=== PATIENT | female | born 1980 | race Caucasian/White ===

== ENCOUNTER 2017-01-19 16:57 | Inpatient (IN) | payer SELFPAY ==
[~2017-01-19] VITALS: Ht 154.9 cm; Wt 83.6 kg
[~2017-01-19 16:57] MED LIST: CATAPRES0.1 MG PO; CYCLOBENZAPRINE10 MG PO; HUMALOG 30100 UNITS/ SQ; HYDROCODONE-APA1 TAB PO; IBUPROFEN600 MG PO; KLONOPIN0.5 MG PO; LEVEMIR100 U/M1 SC; METHYLERGONOVI0.2 MG PO; NOVOLOG MIX 70/10 ML SC; PERCOCET 5-3251 TAB PO; PHENERGAN25 M1 PO; PRENATAL COMPLE1 TAB PO; PRILOSEC20 MG PO; TYLENOL PM1 TAB PO; VIBRAMYCIN 100100 MG PO; ZANTAC150 MG PO; ZOFRAN4 MG PO
--- NOTE | 2017-01-19 17:15 | NUR ---
RECIEVED TO ROOM 2215 DIRECT ADMIT.
[2017-01-19] MEDS ORDERED: KLONOPIN0.5 MG PO (17:20)
[2017-01-19] MEDS ORDERED: OMEPRAZOLE20 M1 PO (17:20)
[2017-01-19] MEDS ORDERED: CATAPRES0.1 MG PO (17:20)
[2017-01-19 17:28] VITALS: BP 152/72; Ht 154.9 cm; Wt 83.6 kg
--- NOTE | 2017-01-19 17:50 | NUR ---
IV SITED TO L HAND WITH 22 GUAGE X 1 ATTEMPT. DILAUDID GIVEN SLOW IVP FOR COMPLAINT OF ABDOMINAL PAIN. VISITING WITH COMPANY.
[2017-01-19 19:06] LABS: BASOPHILS 0.5 % (0-2); EOSINOPHILS 1.1 % (0-7); HEMATOCRIT 43.9 % (36.0-48.0); HEMOGLOBIN 15.5 g/dL (12-16); IMMATURE GRANULOCYTES 0.5 % (0-5); LYMPHOCYTES 33.2 % (15-50); MCH 32.9 pg (26.0-34.0); MCHC 35.3 g/dL (31.0-37.0); MCV 93.2 fL (80.0-100.0); MEAN PLATELET VOLUME 8.8 fL (7.4-10.4); MONOCYTES 7.6 % (2-11); NEUTROPHILS 57.1 % (40-80); PLATELET COUNT 377 10x3/uL (130-400); RBC 4.71 10x6/uL (4.00-5.40); RDW 11.8 % (11.5-14.5); WBC 9.8 10x3/uL (4.8-10.8)
[2017-01-19 19:31] LABS: HEMOGLOBIN A1C 10.4 % (4.8-6.0)
[2017-01-19 19:41] LABS: CALC OSMOLALITY 279 mosm/kg (275-300); CALCIUM 8.5 mg/dL (8.5-10.1); CARBON DIOXIDE 22.7 mmol/L (21.0-32.0); CHLORIDE - SERUM 101 mmol/L (98-107); CREATININE - SERUM 0.6 mg/dL (0.6-1.3); GLUCOSE 225 mg/dL (74-106); SODIUM 137 mmol/L (136-145); UREA NITROGEN 9 mg/dL (7-18); eGFR NON AFRICAN AMERICAN > 90 mL/min (90-120)
[2017-01-19 20:00] VITALS: BP 129/55
[2017-01-20] VITALS: BP 103/50
[2017-01-20 04:00] VITALS: BP 144/68
--- NOTE | 2017-01-20 05:50 | NUR ---
NOTIFIED BY BELKYS HAWKINS THAT HE FOUND THE PATIENT IN THE FLOOR. THE PATIENT STATED THAT WHEN SHE TRIED TO SIT ON THE BED, THE BED MOVED AND SHE FELL TO THE FLOOR. THE PATIENT HAS A SMALL SCRAPE ON HER RIGHT KNEE. THE PATIENT ALSO HAS A COMPLAINT OF HER RIGHT FIFTH FINGER BEING SORE. PATIENT REFUSED TO CALL HER FAMILY.
[2017-01-20 08:09] VITALS: BP 100/52
--- NOTE | 2017-01-20 08:25 | NUR ---
AWAKE AND ALERT. ORIENTED X3. C/O ABDOMINAL PAIN THIS AM. LUNGS ARE CLEAR BILATERALLY, NO COUGH NOTED. SKIN IS INTACT WITHOUT REDNESS EXCEPT SMALL OPEN AREA RIGHT UNDER THE UMBILICUS WHCIH HAS A DRY INTACT DRESSING IN PLACE. IV TO LEFT HAND IS PATENT WITHOUT REDNESS AT INSERTION SITE. URINE COLLECTED FOR TEST. DENIES NEEDS.
[2017-01-20 08:50] LABS: HCG URINE NEGATIVE (NEGATIVE)
--- NOTE | 2017-01-20 10:30 | NUR ---
RESTING QUIETLY IN ROOM. DENIES NEEDS.
[2017-01-20 11:14] LABS: BASOPHILS 0.5 % (0-2); EOSINOPHILS 0.9 % (0-7); HEMATOCRIT 43.5 % (36.0-48.0); HEMOGLOBIN 15.1 g/dL (12-16); IMMATURE GRANULOCYTES 0.5 % (0-5); LYMPHOCYTES 17.6 % (15-50); MCH 32.8 pg (26.0-34.0); MCHC 34.7 g/dL (31.0-37.0); MCV 94.6 fL (80.0-100.0); MEAN PLATELET VOLUME 8.9 fL (7.4-10.4); MONOCYTES 5.8 % (2-11); NEUTROPHILS 74.7 % (40-80); PLATELET COUNT 355 10x3/uL (130-400); RDW 11.9 % (11.5-14.5)
[2017-01-20 11:54] LABS: ALBUMIN 3.2 g/dL (3.4-5.0); ALKALINE PHOSPHATASE 111 U/L (46-116); ALT (SGPT) 29 U/L (10-68); CALC OSMOLALITY 277 mosm/kg (275-300); CALCIUM 8.6 mg/dL (8.5-10.1); CARBON DIOXIDE 25.1 mmol/L (21.0-32.0); CHLORIDE - SERUM 101 mmol/L (98-107); CREATININE - SERUM 0.6 mg/dL (0.6-1.3); GLUCOSE 269 mg/dL (74-106); POTASSIUM - SERUM 4.7 mmol/L (3.5-5.1); PROTEIN - SERUM 6.3 g/dL (6.4-8.2); SODIUM 134 mmol/L (136-145); UREA NITROGEN 14 mg/dL (7-18); eGFR NON AFRICAN AMERICAN > 90 mL/min (90-120)
[2017-01-20 11:59] VITALS: BP 120/78
--- NOTE | 2017-01-20 12:00 | NUR ---
FSBS 268. GIVEN 10 UNITS HUMALOG SUBQ PER SS. LUNCH SERVED IN ROOM.
--- NOTE | 2017-01-20 13:20 | NUR ---
Patient Name: CANDI WILSON Admission Status: Urgent Accout number: [id number] Admission Date: 01-19-2017 : 1980 Admission Diagnosis: Attending: LINN Current LOS: 1 Anticipated DC Date: Planned Disposition: Home Health Service Primary Insurance: UNINSURED DISCOUNT PLAN Discharge Planning Comments: CM met with patient to assess discharge planning needs. Patient currently lives at home with her 2 children 20 months & 6 years. She works at the [employer]. She states that she has a glucometer at home but denies any other medical equipment. She is unsure of who will drive her home when discharged. CM will continue to follow and assist as needed. PCP: ROSEY KEVINKENDALL MCCORMACK (SISTER) [phone] Physician Practice Consultant: Genoveva Rashid * Is the patient Alert and Oriented? Yes 0 * PCP FLORI 0 * Pharmacy [facility] [address] 0 * Preadmission Environment Home Alone 0 * ADLs Independent 0 * Equipment Glucometer 0 * List name and contact numbers for known caregivers / representatives who currently or will assist patient after discharge: SISTER- JESSE MCCORMACK [phone] * Community resources currently utilized None 0 * Additional services required to return to the preadmission environment? No 0 * Can the patient safely return to the preadmission environment? Yes 0 * Has this patient been hospitalized within the prior 30 days at any hospital? No 0 Grand Total: 0
--- NOTE | 2017-01-20 14:30 | NUR ---
NO CHANGES AT THIS TIME. DENIES NEEDS.
[2017-01-20 15:19] VITALS: BP 108/53
[2017-01-20 17:23] LABS: AMYLASE - SERUM 65 U/L (25-115); LIPASE 110 U/L (73-393)
--- NOTE | 2017-01-20 19:45 | NUR ---
PATIENT RESTING IN BED WITH GUESTS AT BEDSIDE AND DENIES NEEDS AT THIS TIME. BED IN LOWEST POSITION AND CALL LIGHT WITHIN REACH. ENCOURAGED THE PATIENT TO CALL IF SHE HAS NEEDS.
[2017-01-20 20:00] VITALS: BP 135/65
[2017-01-21] VITALS: BP 127/82
[2017-01-21 04:00] VITALS: BP 112/58
[2017-01-21 06:16] LABS: BASOPHILS 0.1 % (0-2); EOSINOPHILS 0.4 % (0-7); HEMATOCRIT 42.7 % (36.0-48.0); HEMOGLOBIN 15.2 g/dL (12-16); IMMATURE GRANULOCYTES 0.5 % (0-5); LYMPHOCYTES 15.7 % (15-50); MCH 33.1 pg (26.0-34.0); MCHC 35.6 g/dL (31.0-37.0); MEAN PLATELET VOLUME 9.1 fL (7.4-10.4); MONOCYTES 6.4 % (2-11); NEUTROPHILS 76.9 % (40-80); PLATELET COUNT 423 10x3/uL (130-400); RBC 4.59 10x6/uL (4.00-5.40); RDW 11.7 % (11.5-14.5)
[2017-01-21 06:42] LABS: WBC 14.3 10x3/uL (4.8-10.8)
[2017-01-21 07:02] LABS: ALBUMIN 3.2 g/dL (3.4-5.0); ALKALINE PHOSPHATASE 105 U/L (46-116); ALT (SGPT) 26 U/L (10-68); CALCIUM 8.8 mg/dL (8.5-10.1); CARBON DIOXIDE 23.6 mmol/L (21.0-32.0); CHLORIDE - SERUM 100 mmol/L (98-107); CREATININE - SERUM 0.7 mg/dL (0.6-1.3); POTASSIUM - SERUM 4.2 mmol/L (3.5-5.1); PROTEIN - SERUM 6.8 g/dL (6.4-8.2); SODIUM 135 mmol/L (136-145); eGFR NON AFRICAN AMERICAN > 90 mL/min (90-120)
[2017-01-21 07:03] LABS: CALC OSMOLALITY 280 mosm/kg (275-300); GLUCOSE 202 mg/dL (74-106); UREA NITROGEN 26 mg/dL (7-18)
--- NOTE | 2017-01-21 07:20 | NUR ---
REPORT RECEIVED FROM SENIOR COMPUTER SPECIALIST NURSE. CALL LIGHT IN REACH.
[2017-01-21 08:07] VITALS: BP 104/49
--- NOTE | 2017-01-21 08:37 | NUR ---
ASSESSMENT COMPLETED. AM MEDS ADMINISTERED. REQUESTS PAIN MED FOR PAIN OF 5 TO BACK AND ABDOMEN SO DILAUDID IVP ADMINISTERED. CARE PLAN REVIEWED. PHARMACY AND PASSWORD OBTAINED AND PLACED IN COMPUTER. SCDs EXPLAINED AND OFFERED BUT REFUSES. [place] HAT PLACED IN BR FOR URINE COLLECTION. WILL SEE IF WE CAN GET A SAMPLE FOR A UA D/T BACK PAIN AND FOUL SMELLING URINE. CALL LIGHT IN REACH. WILL CONTINUE WITH PLAN OF CARE.
--- NOTE | 2017-01-21 09:34 | NUR ---
STATES PAIN IS UP TO A 7 FROM GETTING UP MOVING AROUND. NOW REQUESTS TO WEAR SCDs SO PLACED IN BY CINDER BLOCK MAKER. URINE SAMPLE COLLECTED AND SENT TO LAB.
--- NOTE | 2017-01-21 11:47 | NUR ---
CRYING IN PAIN. SCHEDULED TORADOL IV. FSBS 70. SPOKE WITH DR. COELLO ABOUT PATIENT. NEW ORDERS RECEIVED.
[2017-01-21 12:05] LABS: APPEARANCE SLT CLOUDY (CLEAR); BILIRUBIN NEGATIVE (NEGATIVE); COLOR YELLOW (YELLOW); GLUCOSE 100 mg/dL (NEGATIVE); KETONE NEGATIVE (NEGATIVE); LEUKOCYTE ESTERASE NEGATIVE (NEGATIVE); NITRITE NEGATIVE (NEGATIVE); PROTEIN NEGATIVE (NEGATIVE); SPECIFIC GRAVITY 1.015 (1.005-1.020); UROBILINOGEN NORMAL (NORMAL)
[2017-01-21 12:17] VITALS: BP 127/60
--- NOTE | 2017-01-21 12:54 | NUR ---
LYING IN BED,WITHOUT DISTRESS.
[2017-01-21 13:48] LABS: ERYTHROCYTE SEDIMENTATION RATE 27 mm/hr (0-20)
--- NOTE | 2017-01-21 14:20 | NUR ---
RESTING WITH EYES CLOSED. RESP EVEN AND UNLABORED. CALL LIGHT IN REACH.
--- NOTE | 2017-01-21 16:02 | NUR ---
ATIVAN 1 MNG SIVP. TO MRI VIA WC.
[2017-01-21 16:14] VITALS: BP 95/47
--- NOTE | 2017-01-21 18:30 | NUR ---
NO CHANGES IN INITIAL ASSESSMENT. CALL LIGHT IN REACH. REFUSING SCDs AT THIS TIME. WILL CONTINUE WITH PLAN OF CARE.
--- NOTE | 2017-01-21 19:33 | NUR ---
16 UNITS INSULIN SUBQ TO LEFT ARM FOR BLOOD SUGAR OF 293. TORADOL AND TEFLARO IV. CALL LIGHT IN REACH.
[2017-01-21 20:00] VITALS: BP 140/62
--- NOTE | 2017-01-21 21:24 | NUR ---
REQUESTED TO DO OWN SUPPOSITORIES. STATED THEY DID NOT WORK. MIRALAX AND COLACE PO. IV TO LEFT HAND DC'D WITH TIP INTACT D/T TENDERNESS AND REDNESS.
--- NOTE | 2017-01-21 21:39 | NUR ---
IV RESITED TO LEFT FOREARM WITH 22 GA X1 STICK. DILAUDID 1 MG SIVP. CALL LIGHT IN REACH.
--- NOTE | 2017-01-21 23:05 | NUR ---
REPORT RECIEVED FROM ALEXANDER KNOTT. PATIENT IN BED WITH IV INTACT. NO COMPLAINTS. WILL CONTINUE TO MONITOR. CALL LIGHT WITHIN REACH.
--- NOTE | 2017-01-21 23:06 | NUR ---
TORADOL SIVP PER ORDER. CALL LIGHT IN REACH.
--- NOTE | 2017-01-21 23:50 | NUR ---
REPORT GIVEN TO DONALD GIMENEZ.
--- NOTE | 2017-01-22 00:10 | NUR ---
PATIENT UP TO SHOWER. IV DISCONNECTED AND WRAPPED AT THIS TIME. NO COMPLAINTS. CALL LIGHT WITHIN REACH.
--- NOTE | 2017-01-22 01:55 | NUR ---
PATIENT IN BED WITH EYES CLOSED RESTING QUIETLY AT THIS TIME. IV INTACT. CALL LIGHT WITHIN REACH.
--- NOTE | 2017-01-22 03:45 | NUR ---
PATIENT RECIEVED DILAUDID IVP SLOWLY OVER 1 1/2 MINUTES. IV INTACT. NO OTHER COMPLAINTS. CALL LIGHT WITHIN REACH.
[2017-01-22 04:00] VITALS: BP 123/74
[2017-01-22 06:52] LABS: BASOPHILS 0.5 % (0-2); EOSINOPHILS 0.9 % (0-7); HEMATOCRIT 39.3 % (36.0-48.0); HEMOGLOBIN 13.4 g/dL (12-16); IMMATURE GRANULOCYTES 0.7 % (0-5); LYMPHOCYTES 34.3 % (15-50); MCH 32.4 pg (26.0-34.0); MCHC 34.1 g/dL (31.0-37.0); MCV 94.9 fL (80.0-100.0); MEAN PLATELET VOLUME 9.1 fL (7.4-10.4); NEUTROPHILS 55.6 % (40-80); PLATELET COUNT 362 10x3/uL (130-400); RBC 4.14 10x6/uL (4.00-5.40); RDW 12.1 % (11.5-14.5)
[2017-01-22 07:14] LABS: ALBUMIN 2.8 g/dL (3.4-5.0); ANION GAP 12.4 mmol/L (8-16); BILIRUBIN - TOTAL 0.22 mg/dL (0.2-1.3); CARBON DIOXIDE 26.9 mmol/L (21.0-32.0); POTASSIUM - SERUM 4.3 mmol/L (3.5-5.1); PROTEIN - SERUM 6.1 g/dL (6.4-8.2)
--- NOTE | 2017-01-22 07:15 | NUR ---
REPORT RECEIVED FROM SHANK TAPER NURSE. CALL LIGHT IN REACH.
[2017-01-22 07:16] LABS: CREATININE - SERUM 0.9 mg/dL (0.6-1.3)
--- NOTE | 2017-01-22 07:53 | NUR ---
ASSESSMENT COMPLETED. DILAUDID IVP PER C/O 5 TO ABD. DOES NOT WANT TO WEAR SCDs AT THIS TIME. CALL LIGHT IN REACH. WILL CONTINUE WITH PLAN OF CARE.
[2017-01-22 08:15] VITALS: BP 83/59
--- NOTE | 2017-01-22 09:20 | NUR ---
NO NEEDS VOICED AT THIS TIME. CALL LIGHT IN REACH.
--- NOTE | 2017-01-22 10:50 | NUR ---
NO DISTRESS NOTED AT THIS TIME. CALL LIGHT IN REACH.
[2017-01-22] MEDS ORDERED: GLIMEPIRIDE4 MG PO (10:51)
[2017-01-22] MEDS ORDERED: ACTOS15 MG PO (10:51)
[2017-01-22] MEDS ORDERED: BACTRIM DS TABL1 TAB PO (10:51)
[2017-01-22] MEDS ORDERED: ULTRAM50 MG PO (11:17)
[2017-01-22 11:41] VITALS: BP 139/80
--- NOTE | 2017-01-22 12:55 | NUR ---
DILAUDID SIVP PER C/O PAIN OF 7. IV THEN DC'D WITH TIP INTACT. DC INSTRUCTIONS EXPLAINED TO PATIENT. VERBALIZED UNDERSTANDING. WAITING ON RIDE HOME.
--- NOTE | 2017-01-22 13:14 | NUR ---
FSBS 192 SO 8 UNITS OF HUMALOG SUBQ TO LEFT ARM. TORADOL IVP. CALL LIGHT IN REACH.
--- NOTE | 2017-01-22 13:40 | NUR ---
RX FOR TRAMADOL HANDED TO PATIENT.
--- NOTE | 2017-01-22 14:20 | NUR ---
DC'D HOME WITH FAMILY. ESCORTED TO VEHICLE BY VOLUNTEER VIA WC WITH BELONGINGS.
== END 2017-01-22 14:20 | disposition home or self-care (01) | DRG 603 ==
LOC: D.MS 16:57
PROVIDERS: Emergency Medicine; Family Medicine; Student in an Organized Health Care Education/Training Program; Surgery; ADMIT Family Medicine
DX: L03.316 Cellulitis of umbilicus (principal); Z68.41 Body mass index [BMI] 40.0-44.9, adult; E11.9 Type 2 diabetes mellitus without complications; K21.9 Gastro-esophageal reflux disease without esophagitis; F17.200 Nicotine dependence, unspecified, uncomplicated; E66.01 Morbid (severe) obesity due to excess calories; K59.00 Constipation, unspecified

== ENCOUNTER 2017-03-02 23:21 | Emergency (ER) | payer SELFPAY ==
[2017-01-19 17:28] VITALS: BMI 34.8
[~2017-03-02 23:21] MED LIST changes: +ACTOS15 MG PO; +BACTRIM DS TABL1 TAB PO; +GLIMEPIRIDE4 MG PO; +OMEPRAZOLE20 M1 PO; +ULTRAM50 MG PO
[2017-03-03] LABS: HEMATOCRIT 40.5 % (36.0-48.0); HEMOGLOBIN 14.7 g/dL (12-16); LYMPHOCYTES 43.8 % (15-50); MCH 32.5 pg (26.0-34.0); MCHC 36.3 g/dL (31.0-37.0); MCV 89.6 fL (80.0-100.0); MEAN PLATELET VOLUME 7.9 fL (7.4-10.4); NEUTROPHILS 49.3 % (40-80); PLATELET COUNT 339 10x3/uL (130-400); RBC 4.52 10x6/uL (4.00-5.40); RDW 12.1 % (11.5-14.5); WBC 9.1 10x3/uL (4.8-10.8)
[2017-03-03 00:31] LABS: CREATINE KINASE 5 UL (21-215); POTASSIUM - SERUM 3.7 mmol/L (3.5-5.1); SODIUM 137 mmol/L (136-145); TROPONIN-I 0.057 ng/mL (0.000-0.060)
[2017-03-03 00:47] LABS: ALBUMIN 3.3 g/dL (3.4-5.0); ALKALINE PHOSPHATASE 107 U/L (46-116); ALT (SGPT) 19 U/L (10-68); CALC OSMOLALITY 284 mosm/kg (275-300); CALCIUM 8.8 mg/dL (8.5-10.1); CARBON DIOXIDE 21.9 mmol/L (21.0-32.0); CHLORIDE - SERUM 104 mmol/L (98-107); CREATININE - SERUM 0.8 mg/dL (0.6-1.3); PROTEIN - SERUM 6.6 g/dL (6.4-8.2); UREA NITROGEN 19 mg/dL (7-18); eGFR NON AFRICAN AMERICAN 85 mL/min (90-120)
[2017-03-03 00:50] LABS: GLUCOSE 259 mg/dL (74-106)
== END 2017-03-03 01:10 | disposition home or self-care (01) ==
LOC: D.ER 23:21
PROVIDERS: Emergency Medicine
DX: M94.0 Chondrocostal junction syndrome [Tietze] (principal); E11.9 Type 2 diabetes mellitus without complications; Z79.4 Long term (current) use of insulin; F17.200 Nicotine dependence, unspecified, uncomplicated

== ENCOUNTER 2017-03-12 16:46 | Emergency (ER) | payer SELFPAY ==
[2017-01-19 17:28] VITALS: BMI 34.8
== END 2017-03-12 18:37 | disposition home or self-care (01) ==
LOC: D.ER 16:46
DX: S90.31XA Contusion of right foot, initial encounter (principal); W22.8XXA Striking against or struck by other objects, initial encounter; Y93.89 Activity, other specified; Y92.013 Bedroom of single-family (private) house as the place of occurrence of the external cause; F17.200 Nicotine dependence, unspecified, uncomplicated; I10 Essential (primary) hypertension; E11.9 Type 2 diabetes mellitus without complications; Z79.4 Long term (current) use of insulin

== ENCOUNTER 2017-04-22 13:19 | Emergency (ER) | payer SELFPAY ==
[2017-01-19 17:28] VITALS: BMI 34.8
== END 2017-04-22 17:10 | disposition home or self-care (01) ==
LOC: D.ER 13:19
DX: S93.602A Unspecified sprain of left foot, initial encounter (principal); X58.XXXA Exposure to other specified factors, initial encounter; Y93.89 Activity, other specified; Y92.029 Unspecified place in mobile home as the place of occurrence of the external cause; I10 Essential (primary) hypertension; E11.9 Type 2 diabetes mellitus without complications; Z79.4 Long term (current) use of insulin; F17.200 Nicotine dependence, unspecified, uncomplicated

== ENCOUNTER 2018-03-04 13:00 | Emergency (ER) | payer MEDICAID ==
[~2018-03-04] VITALS: Ht 154.9 cm; Wt 81.8 kg
[2018-03-04 13:05] VITALS: Ht 154.9 cm; Wt 81.8 kg
[2018-03-04] MEDS ORDERED: TORADOL10 MG PO (14:56)
[2018-03-04 15:51] VITALS: BP 178/106
== END 2018-03-04 15:54 | disposition home or self-care (01) ==
LOC: D.ER 13:00
DX: S20.212A Contusion of left front wall of thorax, initial encounter (principal); W18.30XA Fall on same level, unspecified, initial encounter; Y93.89 Activity, other specified; Y92.019 Unspecified place in single-family (private) house as the place of occurrence of the external cause; E11.9 Type 2 diabetes mellitus without complications; F17.200 Nicotine dependence, unspecified, uncomplicated

== ENCOUNTER 2018-04-06 05:40 | Day surgery (SDC) | payer MEDICAID ==
[2018-04-05 11:22] LABS: HEMATOCRIT 41.3 % (36.0-48.0); HEMOGLOBIN 14.8 g/dL (12-16); MCH 32.9 pg (26.0-34.0); MCHC 35.8 g/dL (31.0-37.0); MCV 91.8 fL (80.0-100.0); RBC 4.5 10x6/uL (4.00-5.40); RDW 12.4 % (11.5-14.5); WBC 7.9 10x3/uL (4.8-10.8)
[~2018-04-06] VITALS: Ht 154.9 cm; Wt 79.8 kg
--- NOTE | ~2018-04-06 | OP ---
PATIENT NAME: CANDI WILSON MEDICAL RECORD: [id number] :[birth year] LOCATION:[facility] ADMISSION DATE: SURGEON: DAVID CHOI MD DATE OF OPERATION: 04/06/2018 SURGEON: David Choi MD ANESTHESIA: TIVA by Ed Hill CRNA. DIAGNOSIS: Interstitial cystitis. PROCEDURES: Cystoscopy and intravesical Rimso instillation. FINDINGS: Single ureteral orifices bilaterally. No bladder tumors. Diffuse bladder inflammation. BLOOD LOSS: None. CLINICAL HISTORY: This is a 37-year-old female, A2. She was referred by Dr. Onofre for "urethral polyps." Her history is very difficult to obtain as she never really focuses on any particular issue, but she seems to have urinary urgency, frequency, nocturia times 4 with dysuria and vaginal pain and dyspareunia. Her symptoms are highly suggestive of interstitial cystitis and she is coming today to have cystoscopy and intravesical Rimso instillation if we find a bladder inflammation. She is allergic to AMOXICILLIN, ASPIRIN, HYDROCODONE, PHENERGAN, IODINE, PERCOCET, PENICILLIN. She was given Levaquin IV carbon printer to the OR. DESCRIPTION OF PROCEDURE: The patient was given IV sedation. She was placed in the dorsal lithotomy position and prepped and draped. Cystoscopy was performed using a 30-degree scope. Findings are as outlined above. No polyps were seen. She has diffuse bladder inflammation. The bladder was then fully emptied through the cystoscope sheath. A 16-[place] Citizen Guerrero catheter was inserted and 50 mL of Rimso solution was instilled into the bladder. The catheter was removed, leaving the solution in the bladder. The patient will hold the solution in for at least 15 minutes and then void it out. She will come to the office next week to have a second treatment done. TRANSINT:[id number] Voice Confirmation ID: [id number] DOCUMENT ID: [id number] DAVID CHOI MD at 1206 CC: [id number] DICTATION DATE: 04/06/18 0845 BRASS FINISHER: 04/06/18 1117 [facility] 04/06/18 [place] [address]
[~2018-04-06 05:40] MED LIST changes: +BASAGLAR K100 UNIT/1 SC; +KLONOPIN1 MG PO; +PIOGLITAZONE15 MG PO; +TORADOL10 MG PO; +ZANAFLEX4 MG PO; -ZANTAC150 MG PO; +ZANTAC300 MG PO
[2018-04-06 07:24] VITALS: BP 139/91; Ht 154.9 cm; Wt 79.8 kg
[2018-04-06 08:03] LABS: HCG URINE NEGATIVE (NEGATIVE)
[2018-05-04] MEDS ORDERED: MACROBID100 MG PO (12:16)
[2018-05-04] MEDS ORDERED: VICTOZA0.6 MG/0.1 SQ (12:17)
== END 2018-04-06 10:15 | disposition home or self-care (01) ==
LOC: D.OPS 05:40 → D.PAN 08:45 → D.OPS 08:45
PROVIDERS: Anesthesiology; Urology
DX: N30.10 Interstitial cystitis (chronic) without hematuria (principal); Z88.6 Allergy status to analgesic agent; Z88.5 Allergy status to narcotic agent; Z88.0 Allergy status to penicillin; Z88.8 Allergy status to other drugs, medicaments and biological substances; Z01.812 Encounter for preprocedural laboratory examination

== ENCOUNTER 2018-05-04 12:40 | Emergency (ER) | payer MEDICAID ==
[~2018-05-04] VITALS: Ht 154.9 cm; Wt 78.0 kg
[~2018-05-04 12:40] MED LIST changes: +MACROBID100 MG PO; +VICTOZA0.6 MG/0.1 SQ
[2018-05-04 12:50] VITALS: Ht 154.9 cm; Wt 78.0 kg
[2018-05-04] MEDS ORDERED: TORADOL10 MG PO (12:52)
[2018-05-04 15:20] VITALS: BP 122/078
== END 2018-05-04 15:22 | disposition home or self-care (01) ==
LOC: D.ER 12:40
DX: G56.03 Carpal tunnel syndrome, bilateral upper limbs (principal); M79.602 Pain in left arm; M79.601 Pain in right arm; M79.642 Pain in left hand; M79.641 Pain in right hand; E11.9 Type 2 diabetes mellitus without complications; K21.9 Gastro-esophageal reflux disease without esophagitis

== ENCOUNTER 2018-05-06 07:44 | Day surgery (SDC) | payer MEDICAID ==
[2018-05-04 12:39] LABS: BASOPHILS 0.3 % (0-2); EOSINOPHILS 1.5 % (0-7); HEMOGLOBIN 13.4 g/dL (12-16); IMMATURE GRANULOCYTES 0.3 % (0-5); LYMPHOCYTES 32.8 % (15-50); MCH 32.5 pg (26.0-34.0); MCHC 35.3 g/dL (31.0-37.0); MCV 92.2 fL (80.0-100.0); MEAN PLATELET VOLUME 8.8 fL (7.4-10.4); MONOCYTES 7.9 % (2-11); NEUTROPHILS 57.2 % (40-80); PLATELET COUNT 381 10x3/uL (130-400); RBC 4.12 10x6/uL (4.00-5.40); RDW 11.9 % (11.5-14.5); WBC 8.6 10x3/uL (4.8-10.8)
[2018-05-04 12:53] LABS: CALC OSMOLALITY 281 mosm/kg (275-300); CALCIUM 8.5 mg/dL (8.5-10.1); CARBON DIOXIDE 23.6 mmol/L (21.0-32.0); CHLORIDE - SERUM 105 mmol/L (98-107); CREATININE - SERUM 0.6 mg/dL (0.6-1.3); GLUCOSE 246 mg/dL (74-106); POTASSIUM - SERUM 4.4 mmol/L (3.5-5.1); SODIUM 138 mmol/L (136-145); UREA NITROGEN 6 mg/dL (7-18); eGFR NON AFRICAN AMERICAN > 90 mL/min (90-120)
[~2018-05-06] VITALS: Ht 180.3 cm; Wt 78.0 kg
--- NOTE | ~2018-05-06 | OP ---
PATIENT NAME: CANDI WILSON MEDICAL RECORD: [id number] :[birth year] LOCATION:[facility] ADMISSION DATE: SURGEON: VIDAL BOTELLO MD DATE OF OPERATION: 05/06/2018 PREOPERATIVE DIAGNOSIS: Carpal tunnel syndrome of the right wrist. POSTOPERATIVE DIAGNOSIS: Carpal tunnel syndrome of the right wrist. PROCEDURE: Right carpal tunnel release. SURGEON: Vidal Botello MD ANESTHESIA: General. INTRAOPERATIVE COMPLICATIONS: None. SUMMARY OF PATHOLOGIC FINDINGS: The patient had a very tight transverse carpal ligament consistent with preoperative EMG. OPERATIVE SUMMARY IN DETAIL: After obtaining the appropriate preoperative orthopedic surgery consent as well as anesthetic consultation, evaluation and clearance, the patient was brought to the operating room and placed on the operating table in supine position. After adequate general laryngeal mask airway was administered, tourniquet was placed on the proximal aspect of the right upper extremity. Right upper extremity was then prepped and draped in routine sterile fashion. The arm was elevated and exsanguinated, tourniquet inflated to 250 mmHg. Routine midpalmar incision was made in line with the third metacarpal, this was taken down to the level of the distal aspect, the transverse carpal ligament was identified and then under direct visualization it was incised in its entirety while protecting the median nerve. Having completed this, the wound was irrigated and closed with 4-0 Prolene in routine interrupted fashion. Sterile dressings were applied. The patient was awakened and taken to recovery room in stable condition. All final needle and sponge counts were correct. TRANSINT:[id number] Voice Confirmation ID: [id number] DOCUMENT ID: [id number] ROSMERY FORREST, VIDAL COPE at 1157 CC: [id number] DICTATION DATE: 05/14/18 1048 SURVEILLANCE OPERATOR: 05/14/[address] [facility] 05/06/18 [place] [address]
[2018-05-06 08:13] VITALS: BP 97/71; Ht 180.3 cm; Wt 78.0 kg
[2018-05-06 08:49] LABS: HCG URINE NEGATIVE (NEGATIVE)
[2018-05-06] MEDS ORDERED: OXYCODONE-APAP1 T10 PO (09:31)
== END 2018-05-06 11:30 | disposition home or self-care (01) ==
LOC: D.OPS 07:44 → D.PAN 12:55 → D.OPS 14:30
PROVIDERS: Anesthesiology; Orthopaedic Surgery
DX: G56.01 Carpal tunnel syndrome, right upper limb (principal); Z01.812 Encounter for preprocedural laboratory examination

== ENCOUNTER 2018-05-22 19:11 | Inpatient (IN) | payer MEDICAID ==
[~2018-05-22] VITALS: Ht 154.9 cm; Wt 78.0 kg
[~2018-05-22 19:11] MED LIST changes: +OXYCODONE-APAP1 T10 PO
[2018-05-22 19:55] LABS: BASOPHILS 0.2 % (0-2); EOSINOPHILS 0.1 % (0-7); HEMATOCRIT 43.3 % (36.0-48.0); IMMATURE GRANULOCYTES 0.5 % (0-5); LYMPHOCYTES 9.9 % (15-50); MCH 33.3 pg (26.0-34.0); MEAN PLATELET VOLUME 9.2 fL (7.4-10.4); MONOCYTES 9.6 % (2-11); NEUTROPHILS 79.7 % (40-80); PLATELET COUNT 369 10x3/uL (130-400); RBC 4.81 10x6/uL (4.00-5.40); RDW 11.6 % (11.5-14.5); WBC 17.2 10x3/uL (4.8-10.8)
[2018-05-22 20:01] LABS: KETONE - SERUM NEGATIVE (NEGATIVE)
[2018-05-22 20:18] LABS: ALKALINE PHOSPHATASE 118 U/L (46-116); ALT (SGPT) 12 U/L (10-68); BILIRUBIN - TOTAL 0.46 mg/dL (0.2-1.3); CALC OSMOLALITY 270 mosm/kg (275-300); CALCIUM 9.7 mg/dL (8.5-10.1); CARBON DIOXIDE 22.2 mmol/L (21.0-32.0); CHLORIDE - SERUM 97 mmol/L (98-107); CREATININE - SERUM 0.7 mg/dL (0.6-1.3); GLUCOSE 305 mg/dL (74-106); POTASSIUM - SERUM 3.6 mmol/L (3.5-5.1); PROTEIN - SERUM 7.9 g/dL (6.4-8.2); SODIUM 130 mmol/L (136-145); UREA NITROGEN 9 mg/dL (7-18); eGFR NON AFRICAN AMERICAN > 90 mL/min (90-120)
[2018-05-22 20:21] LABS: AMYLASE - SERUM 51 U/L (25-115); CREATINE KINASE 25 UL (21-215); LIPASE 91 U/L (73-393); TROPONIN-I < 0.017 ng/mL (0.000-0.060)
[2018-05-22 20:50] LABS: HCG URINE NEGATIVE (NEGATIVE)
[2018-05-22 20:53] LABS: APPEARANCE HAZY (CLEAR); COLOR YELLOW (YELLOW); NITRITE POSITIVE (NEGATIVE); SPECIFIC GRAVITY 1.015 (1.005-1.020)
[2018-05-22 20:54] LABS: BACTERIA FEW /hpf (NONE SEEN); BILIRUBIN NEGATIVE (NEGATIVE); EPITHELIAL CELLS NSEEN /hpf (0-5); GLUCOSE 1000 mg/dL (NEGATIVE); KETONE SMALL mg/dL (NEGATIVE); PROTEIN NEGATIVE (NEGATIVE); RED CELLS - URINE 0-5 /hpf (0-5); UROBILINOGEN NORMAL (NORMAL); WHITE CELLS - URINE >50 /hpf (0-5)
[2018-05-22 21:09] VITALS: BP 113/55
[2018-05-22 22:19] VITALS: BP 123/62
[2018-05-22] MEDS ORDERED: KLONOPIN1 MG PO (23:51)
[2018-05-23 00:16] VITALS: BP 111/69; BMI 32.5
[2018-05-23 04:30] VITALS: BP 100/66
[2018-05-23 05:10] LABS: BASOPHILS 0.1 % (0-2); EOSINOPHILS 0.1 % (0-7); HEMATOCRIT 40.1 % (36.0-48.0); HEMOGLOBIN 14.1 g/dL (12-16); IMMATURE GRANULOCYTES 0.5 % (0-5); LYMPHOCYTES 7.4 % (15-50); MCH 32.6 pg (26.0-34.0); MCHC 35.2 g/dL (31.0-37.0); MEAN PLATELET VOLUME 9.4 fL (7.4-10.4); MONOCYTES 1.9 % (2-11); PLATELET COUNT 381 10x3/uL (130-400); RBC 4.33 10x6/uL (4.00-5.40); RDW 11.6 % (11.5-14.5)
[2018-05-23 05:13] LABS: MCV 92.6 fL (80.0-100.0); WBC 11.8 10x3/uL (4.8-10.8)
[2018-05-23 05:29] LABS: ALBUMIN 2.5 g/dL (3.4-5.0); ALKALINE PHOSPHATASE 101 U/L (46-116); ALT (SGPT) 14 U/L (10-68); BILIRUBIN - TOTAL 0.28 mg/dL (0.2-1.3); CALCIUM 8.6 mg/dL (8.5-10.1); CARBON DIOXIDE 26.6 mmol/L (21.0-32.0); CHLORIDE - SERUM 98 mmol/L (98-107); CREATININE - SERUM 0.8 mg/dL (0.6-1.3); PROTEIN - SERUM 7.1 g/dL (6.4-8.2); SODIUM 132 mmol/L (136-145); eGFR NON AFRICAN AMERICAN 85 mL/min (90-120)
[2018-05-23 05:30] LABS: CALC OSMOLALITY 281 mosm/kg (275-300); GLUCOSE 401 mg/dL (74-106); POTASSIUM - SERUM 4.4 mmol/L (3.5-5.1); UREA NITROGEN 13 mg/dL (7-18)
[2018-05-23 09:15] VITALS: BP 103/62
[2018-05-23 13:00] VITALS: BP 121/75
[2018-05-23 16:50] VITALS: BP 118/73
[2018-05-23 20:00] VITALS: BP 143/89
[2018-05-24] VITALS: BP 107/49
[2018-05-24 05:00] VITALS: BP 97/63
[2018-05-24 06:41] LABS: ALKALINE PHOSPHATASE 101 U/L (46-116); ALT (SGPT) 14 U/L (10-68); BILIRUBIN - TOTAL 0.17 mg/dL (0.2-1.3); CALC OSMOLALITY 276 mosm/kg (275-300); CARBON DIOXIDE 18.3 mmol/L (21.0-32.0); CHLORIDE - SERUM 102 mmol/L (98-107); CREATININE - SERUM 0.6 mg/dL (0.6-1.3); GLUCOSE 291 mg/dL (74-106); POTASSIUM - SERUM 4.7 mmol/L (3.5-5.1); PROTEIN - SERUM 5.4 g/dL (6.4-8.2); SODIUM 132 mmol/L (136-145); UREA NITROGEN 16 mg/dL (7-18); eGFR NON AFRICAN AMERICAN > 90 mL/min (90-120)
[2018-05-24 06:46] LABS: BASOPHILS 0.2 % (0-2); EOSINOPHILS 0.5 % (0-7); HEMATOCRIT 34.6 % (36.0-48.0); HEMOGLOBIN 11.9 g/dL (12-16); IMMATURE GRANULOCYTES 0.6 % (0-5); LYMPHOCYTES 23.8 % (15-50); MCH 31.9 pg (26.0-34.0); MCHC 34.4 g/dL (31.0-37.0); MCV 92.8 fL (80.0-100.0); MEAN PLATELET VOLUME 9.2 fL (7.4-10.4); MONOCYTES 7.1 % (2-11); NEUTROPHILS 67.8 % (40-80); PLATELET COUNT 377 10x3/uL (130-400); RBC 3.73 10x6/uL (4.00-5.40); RDW 11.7 % (11.5-14.5)
[2018-05-24 06:51] LABS: WBC 16.1 10x3/uL (4.8-10.8)
[2018-05-24 07:45] VITALS: BP 112/72
[2018-05-24 12:30] VITALS: Ht 154.9 cm; Wt 78.0 kg
[2018-05-24 17:05] VITALS: BP 104/58
[2018-05-24 18:41] VITALS: BP 110/65
[2018-05-25 02:35] VITALS: BP 130/71
[2018-05-25 05:01] VITALS: BP 138/80
[2018-05-25 06:56] LABS: BASOPHILS 0.5 % (0-2); EOSINOPHILS 0.8 % (0-7); HEMATOCRIT 35.4 % (36.0-48.0); HEMOGLOBIN 12.1 g/dL (12-16); IMMATURE GRANULOCYTES 0.7 % (0-5); LYMPHOCYTES 36.3 % (15-50); MCH 32.4 pg (26.0-34.0); MCHC 34.2 g/dL (31.0-37.0); MCV 94.7 fL (80.0-100.0); MEAN PLATELET VOLUME 9.5 fL (7.4-10.4); MONOCYTES 8.9 % (2-11); NEUTROPHILS 52.8 % (40-80); PLATELET COUNT 451 10x3/uL (130-400); RBC 3.74 10x6/uL (4.00-5.40); RDW 11.9 % (11.5-14.5)
[2018-05-25 07:04] LABS: WBC 9.9 10x3/uL (4.8-10.8)
[2018-05-25 07:15] LABS: ALBUMIN 2.2 g/dL (3.4-5.0); ALKALINE PHOSPHATASE 87 U/L (46-116); ALT (SGPT) 16 U/L (10-68); BILIRUBIN - TOTAL 0.15 mg/dL (0.2-1.3); CALCIUM 8.3 mg/dL (8.5-10.1); CHLORIDE - SERUM 105 mmol/L (98-107); CREATININE - SERUM 0.7 mg/dL (0.6-1.3); SODIUM 138 mmol/L (136-145); UREA NITROGEN 16 mg/dL (7-18); eGFR NON AFRICAN AMERICAN > 90 mL/min (90-120)
[2018-05-25 07:16] LABS: CALC OSMOLALITY 281 mosm/kg (275-300); GLUCOSE 193 mg/dL (74-106)
[2018-05-25 08:43] VITALS: BP 101/49
[2018-05-25 11:57] VITALS: BP 134/74
[2018-05-25] MEDS ORDERED: LEVAQUIN750 MG PO (14:55)
[2018-05-25] MEDS ORDERED: LEVEMIR IN100 UNITS/ SC (14:57)
[2018-05-25] MEDS ORDERED: MIRALAX17 GM PO (14:58)
[2018-05-25] MEDS ORDERED: NOVOLOG MIX SC (14:58)
== END 2018-05-25 16:27 | disposition home or self-care (01) | DRG 690 ==
LOC: D.ER 19:11 → D.MS 21:59
PROVIDERS: Family Medicine; Internal Medicine Nephrology
DX: N10 Acute pyelonephritis (principal); F17.213 Nicotine dependence, cigarettes, with withdrawal; N20.9 Urinary calculus, unspecified; E11.65 Type 2 diabetes mellitus with hyperglycemia

== ENCOUNTER 2018-09-12 19:57 | Emergency (ER) | payer MEDICAID ==
[~2018-09-12] VITALS: Ht 154.9 cm; Wt 77.3 kg
[~2018-09-12 19:57] MED LIST changes: +LEVAQUIN750 MG PO; +LEVEMIR IN100 UNITS/ SC; +MIRALAX17 GM PO; +NOVOLOG MIX SC
[2018-09-12 20:13] VITALS: Ht 154.9 cm; Wt 77.3 kg
[2018-09-12 21:38] LABS: BASOPHILS 0.4 % (0-2); EOSINOPHILS 1.5 % (0-7); HEMATOCRIT 42.9 % (36.0-48.0); HEMOGLOBIN 15.1 g/dL (12-16); IMMATURE GRANULOCYTES 0.6 % (0-5); LYMPHOCYTES 29.1 % (15-50); MCH 32.5 pg (26.0-34.0); MCHC 35.2 g/dL (31.0-37.0); MCV 92.5 fL (80.0-100.0); MEAN PLATELET VOLUME 8.8 fL (7.4-10.4); MONOCYTES 6.2 % (2-11); NEUTROPHILS 62.2 % (40-80); PLATELET COUNT 433 10x3/uL (130-400); RBC 4.64 10x6/uL (4.00-5.40); RDW 12.3 % (11.5-14.5); WBC 10.1 10x3/uL (4.8-10.8)
[2018-09-12 21:56] LABS: ALBUMIN 3.3 g/dL (3.4-5.0); ALKALINE PHOSPHATASE 103 U/L (46-116); ALT (SGPT) 35 U/L (10-68); APTT 27.1 SECONDS (22.8-39.4); BILIRUBIN - TOTAL 0.16 mg/dL (0.2-1.3); CALC OSMOLALITY 280 mosm/kg (275-300); CALCIUM 8.4 mg/dL (8.5-10.1); CARBON DIOXIDE 22.3 mmol/L (21.0-32.0); CHLORIDE - SERUM 101 mmol/L (98-107); CREATININE - SERUM 0.7 mg/dL (0.6-1.3); INR 0.91 (0.85-1.17); PROTIME 11.8 SECONDS (11.6-15.0); SODIUM 136 mmol/L (136-145); UREA NITROGEN 11 mg/dL (7-18); eGFR NON AFRICAN AMERICAN > 90 mL/min (90-120)
[2018-09-12 21:57] LABS: GLUCOSE 284 mg/dL (74-106)
[2018-09-12 22:08] LABS: CKMB 0.1 U/L (0.0-3.6); CREATINE KINASE 61 UL (21-215); MAGNESIUM - SERUM 1.5 mg/dL (1.8-2.4)
[2018-09-12 22:11] LABS: TROPONIN-I < 0.017 ng/mL (0.000-0.060)
[2018-09-12] MEDS ORDERED: TORADOL10 MG PO (23:44)
[2018-09-13 00:08] LABS: UDS - AMPHET NEGATIVE QUAL (NEGATIVE); UDS - BARB NEGATIVE QUAL (NEGATIVE); UDS - BENZO POSITIVE QUAL (NEGATIVE); UDS - COCAINE NEGATIVE QUAL (NEGATIVE); UDS - OPIATE NEGATIVE QUAL (NEGATIVE); UDS - PCP NEGATIVE QUAL (NEGATIVE); UDS - THC POSITIVE QUAL (NEGATIVE)
[2018-09-13 00:55] LABS: ERYTHROCYTE SEDIMENTATION RATE 22 mm/hr (0-20)
[2018-09-13 02:00] VITALS: BP 123/87
== END 2018-09-13 02:00 | disposition home or self-care (01) ==
LOC: D.ER 19:57
PROVIDERS: Emergency Medicine
DX: R09.1 Pleurisy (principal)

== ENCOUNTER 2018-11-18 05:49 | Day surgery (SDC) | payer MEDICAID ==
[~2018-11-18] VITALS: Ht 154.9 cm; Wt 80.7 kg
[~2018-11-18 05:49] MED LIST changes: +LEVEMIR FL100 UNIT/1 SC; +LISINOPRIL5 MG PO; +NOVOLOG100 UNIT/1 SC
[2018-11-18 06:04] LABS: HEMATOCRIT 40.6 % (36.0-48.0); HEMOGLOBIN 14.7 g/dL (12-16); MCH 33.1 pg (26.0-34.0); MCHC 36.2 g/dL (31.0-37.0); MCV 91.4 fL (80.0-100.0); MEAN PLATELET VOLUME 8.9 fL (7.4-10.4); RBC 4.44 10x6/uL (4.00-5.40); RDW 12.1 % (11.5-14.5); WBC 10.6 10x3/uL (4.8-10.8)
[2018-11-18 06:12] LABS: CALC OSMOLALITY 277 mosm/kg (275-300); CALCIUM 8.5 mg/dL (8.5-10.1); CARBON DIOXIDE 23.7 mmol/L (21.0-32.0); CHLORIDE - SERUM 103 mmol/L (98-107); CREATININE - SERUM 0.8 mg/dL (0.6-1.3); GLUCOSE 239 mg/dL (74-106); POTASSIUM - SERUM 4.2 mmol/L (3.5-5.1); SODIUM 135 mmol/L (136-145); UREA NITROGEN 13 mg/dL (7-18); eGFR NON AFRICAN AMERICAN 85 mL/min (90-120)
--- NOTE | 2018-11-18 07:08 | NUR ---
0700-PT. WITH SUDDEN INTENSE ABDOMINAL PAIN THAT RADIATES TO LEFT FLANK. PAIN COMES AND GOES. DR. CHOI PHONED AND CT SCAN ORDERED FOR ABDOMEN AND PELVIS.
[2018-11-18 08:04] VITALS: BP 115/78; Ht 154.9 cm; Wt 80.7 kg
--- NOTE | 2018-11-18 10:00 | NUR ---
REC'D FROM SURGERY. NO ONE AT BEDSIDE. THRASHING ABOUT IN THE BED COMPLAINING OF PAIN. RELATING IT DIDN'T HURT LIKE THIS BEFORE AND WANTED TO KNOW IF THE DOCTOR DID SOMEHTING DIFFERFENT THIS TIME. WANTING TO URINATE. EXPLAINED TO PATIENT SHE NEEDS TO HOLD URINE LEAST 15 MINUTES BUT LONGER IF SHE CAN.ICE WATER BROUGHT TO PT. PT WAS COMPLAINING OF PAIN PRIOR TO PROCEDURE AND WENT FOR A CT BEFORE PROCEDURE WAS INTITIATED. PER DR CHOI CT WAS CLEAR.
--- NOTE | 2018-11-18 10:24 | NUR ---
C/O PAIN. MORPHINE 2MG IV ADMINISTERED FOR PAIN 6/10 PER ORDERS.
--- NOTE | 2018-11-18 10:30 | NUR ---
ABIMBOLA JAQUELIN BROUGHT TO PATIENT. ASSISTED TO BATHROOM AND VOIDED WITHOUT DIFFICULTY. RELATED IT BURNED BUT SHE DOES FEEL BETTER.
--- NOTE | 2018-11-18 11:00 | NUR ---
TOLERATED DIET. RATES PAIN 2/10 POST PAIN MED. IV DC'D WITH CATHETER INTACT.
--- NOTE | 2018-11-18 11:10 | NUR ---
IV DC'D WITH CATHETER INTACT. WRITTEN AND VERBAL DC INST. GIVEN TO PT. VERBALIZED UNDERSTANDING.
--- NOTE | 2018-11-18 11:35 | NUR ---
DC'D HOME WITH FRIEND VIA PRIVATE VEHICLE. TAKEN TO VEHICLE VIA WC. STABLE AT TIME OF DC.
--- NOTE | 2018-11-19 10:08 | OP ---
PATIENT NAME: CANDI WILSON MEDICAL RECORD: [id number] :[birth year] [facility] ADMISSION DATE: SURGEON: SEEMA CHOI MD DATE OF OPERATION: 11/18/2018 SURGEON: Seema Choi MD ANESTHESIA: TIVA by Arden Richardson CRNA. DIAGNOSIS: Interstitial cystitis. PROCEDURES: Cystoscopy, hydrodistention of the bladder, intravesical Rimso instillation. FINDINGS: Single ureteral orifices bilaterally, diffuse bladder inflammation, no bladder tumors. BLOOD LOSS: None. CLINICAL HISTORY: This is a 38-year-old female, who has a history of interstitial cystitis. She responded well to cystoscopy and intravesical Rimso treatments back in April 2018. She did not return for further Rimso treatments, thus she only had the one Rimso treatment in April. Now, she has symptoms of urgency with urge incontinence, urinary frequency, nocturia times 2-3, vaginal and suprapubic pain and dyspareunia. She comes today to have the flareup of interstitial cystitis treated. In the preoperative holding area, she was complaining of left-sided flank pain. I do not think she has a history of kidney stones, but I sent her to obtain a CT scan of the abdomen and pelvis without contrast. A tiny punctate stone was seen in the kidney, but was nonobstructive. No other abnormalities were found by the radiologist. This was from a verbal report from the radiologist to me. We are now proceeding with the planned cystoscopy, hydrodistention and intravesical Rimso instillation. SHE IS ALLERGIC TO AMOXICILLIN, ASPIRIN, HYDROCODONE, PHENERGAN, IVP DYE. She was given Levaquin IV passenger conductor to the OR. DESCRIPTION OF PROCEDURE: The patient was given IV sedation. She was placed in the lithotomy position and prepped and draped. A 17-Chilean cystoscope with 30-degree lens was used for visualization. Findings are as outlined above. The bladder was filled to about 600 mL of capacity and the volume was maintained for about 2 minutes. The bladder was then drained completely through the cystoscope sheath and the scope was removed. We then inserted a 16-[place]an red rubber catheter into the bladder. Through the lumen of the catheter, 50 mL of Rimso solution was instilled into the bladder. The patient will hold the solution for about 15 minutes and then void it out. I will see her in followup in 2 weeks' time. TRANSINT:[id number] Voice Confirmation ID: [id number] DOCUMENT ID: [id number] OPERATIVE REPORT [id number] CANDI WILSON, SEEMA Qureshi MD at 1008 CC: [id number] DICTATION DATE: 11/18/18 1002 KEY WORKER: 11/18/18 1305 [facility] [place] 11/18/18 [place] [id number]
== END 2018-11-18 11:35 | disposition home or self-care (01) ==
LOC: D.OPS 05:49 → D.PAN 10:45 → D.OPS 11:35
PROVIDERS: Anesthesiology; ATTEND Urology
DX: N30.10 Interstitial cystitis (chronic) without hematuria (principal); Z01.812 Encounter for preprocedural laboratory examination

== ENCOUNTER → 2019-01-04 16:18 | Outpatient (CLI) | payer MEDICAID ==
[2018-11-18 08:04] VITALS: BMI 33.7
== END | disposition home or self-care (01) ==
LOC: D.LABREF 16:18
PROVIDERS: ATTEND Urology
DX: R82.5 Elevated urine levels of drugs, medicaments and biological substances (principal)

== ENCOUNTER 2019-01-30 16:22 | Emergency (ER) | payer MEDICAID ==
[~2019-01-30] VITALS: Ht 154.9 cm; Wt 68.2 kg
[2019-01-30 16:27] VITALS: Ht 154.9 cm; Wt 68.2 kg
[2019-01-30 17:11] LABS: BASOPHILS 0.3 % (0-2); EOSINOPHILS 1.1 % (0-7); HEMATOCRIT 46.8 % (36.0-48.0); HEMOGLOBIN 17.6 g/dL (12-16); IMMATURE GRANULOCYTES 0.5 % (0-5); LYMPHOCYTES 16.6 % (15-50); MCH 32.7 pg (26.0-34.0); MCHC 37.6 g/dL (31.0-37.0); MCV 86.8 fL (80.0-100.0); NEUTROPHILS 74.5 % (40-80); PLATELET COUNT 347 10x3/uL (130-400); RBC 5.39 10x6/uL (4.00-5.40); RDW 11.8 % (11.5-14.5); WBC 14.3 10x3/uL (4.8-10.8)
[2019-01-30 17:26] LABS: ANION GAP 16.7 mmol/L (8-16); BILIRUBIN - TOTAL 0.43 mg/dL (0.2-1.3); CARBON DIOXIDE 22.1 mmol/L (21.0-32.0); CREATININE - SERUM 0.9 mg/dL (0.6-1.3); POTASSIUM - SERUM 3.8 mmol/L (3.5-5.1); PROTEIN - SERUM 7.4 g/dL (6.4-8.2)
[2019-01-30 19:00] LABS: APPEARANCE CLOUDY (CLEAR); BILIRUBIN NEGATIVE (NEGATIVE); COLOR YELLOW (YELLOW); GLUCOSE 1000 mg/dL (NEGATIVE); KETONE SMALL mg/dL (NEGATIVE); NITRITE POSITIVE (NEGATIVE); PROTEIN TRACE mg/dL (NEGATIVE); UROBILINOGEN NORMAL (NORMAL)
[2019-01-30 19:03] LABS: BACTERIA MANY /hpf (NONE SEEN); RED CELLS - URINE OCC /hpf (0-5); WHITE CELLS - URINE 0-5 /hpf (0-5)
[2019-01-30] MEDS ORDERED: FLAGYL500 MG PO (19:41)
[2019-01-30] MEDS ORDERED: CIPRO500 MG PO (19:41)
[2019-01-30] MEDS ORDERED: REGLAN5 MG PO (19:48)
[2019-01-30 20:30] VITALS: BP 125/95
== END 2019-01-30 20:32 | disposition home or self-care (01) ==
LOC: D.ER 16:22
PROVIDERS: Family Medicine
DX: K52.9 Noninfective gastroenteritis and colitis, unspecified (principal)

== ENCOUNTER 2019-02-23 17:27 | Emergency (ER) | payer MEDICAID ==
[~2019-02-23] VITALS: Ht 154.9 cm; Wt 84.8 kg
[~2019-02-23 17:27] MED LIST changes: +CIPRO500 MG PO; +FLAGYL500 MG PO; +REGLAN5 MG PO
[2019-02-23 17:31] VITALS: Ht 154.9 cm; Wt 84.8 kg
[2019-02-23 18:22] LABS: BASOPHILS 0.4 % (0-2); EOSINOPHILS 1.4 % (0-7); HEMOGLOBIN 17.2 g/dL (12-16); IMMATURE GRANULOCYTES 0.2 % (0-5); LYMPHOCYTES 31.7 % (15-50); MCHC 37.4 g/dL (31.0-37.0); MCV 88.1 fL (80.0-100.0); MEAN PLATELET VOLUME 9.2 fL (7.4-10.4); MONOCYTES 11.2 % (2-11); NEUTROPHILS 55.1 % (40-80); PLATELET COUNT 361 10x3/uL (130-400); RBC 5.22 10x6/uL (4.00-5.40); RDW 11.9 % (11.5-14.5); WBC 9.4 10x3/uL (4.8-10.8)
[2019-02-23 18:24] LABS: HCG SERUM NEGATIVE (NEGATIVE)
[2019-02-23 18:26] LABS: APPEARANCE HAZY (CLEAR); BILIRUBIN NEGATIVE (NEGATIVE); COLOR YELLOW (YELLOW); GLUCOSE 50 mg/dL (NEGATIVE); KETONE NEGATIVE (NEGATIVE); NITRITE POSITIVE (NEGATIVE); PROTEIN TRACE mg/dL (NEGATIVE); UROBILINOGEN NORMAL (NORMAL)
[2019-02-23 18:29] LABS: BACTERIA MANY /hpf (NONE SEEN); WHITE CELLS - URINE 0-5 /hpf (0-5)
[2019-02-23 18:30] LABS: MUCUS <1+ /lpf (NONE SEEN)
[2019-02-23 19:04] LABS: ALBUMIN 4.1 g/dL (3.4-5.0); ALKALINE PHOSPHATASE 91 U/L (46-116); ALT (SGPT) 24 U/L (10-68); BILIRUBIN - TOTAL 0.43 mg/dL (0.2-1.3); CALCIUM 9.5 mg/dL (8.5-10.1); CARBON DIOXIDE 19.7 mmol/L (21.0-32.0); CHLORIDE - SERUM 103 mmol/L (98-107); CREATININE - SERUM 0.9 mg/dL (0.6-1.3); POTASSIUM - SERUM 4.3 mmol/L (3.5-5.1); PROTEIN - SERUM 7.5 g/dL (6.4-8.2); SODIUM 137 mmol/L (136-145); UREA NITROGEN 10 mg/dL (7-18); eGFR NON AFRICAN AMERICAN 74 mL/min (90-120)
[2019-02-23 19:08] LABS: AMYLASE - SERUM 65 U/L (25-115); LIPASE 89 U/L (73-393)
[2019-02-23] MEDS ORDERED: CHRONULAC30 ML PO (19:08)
[2019-02-23] MEDS ORDERED: MACROBID100 MG PO (19:08)
[2019-02-23] MEDS ORDERED: BENTYL 20 MG TA20 MG PO (19:08)
[2019-02-23 19:09] LABS: CALC OSMOLALITY 282 mosm/kg (275-300); GLUCOSE 281 mg/dL (74-106); TROPONIN-I < 0.017 ng/mL (0.000-0.060)
[2019-02-23 20:30] VITALS: BP 150/105
== END 2019-02-23 20:30 | disposition home or self-care (01) ==
LOC: D.ER 17:27
PROVIDERS: Family Medicine
DX: N39.0 Urinary tract infection, site not specified (principal); K59.00 Constipation, unspecified

== ENCOUNTER 2019-09-21 00:13 | Emergency (ER) | payer OTHER ==
[~2019-09-21] VITALS: Ht 154.9 cm; Wt 86.4 kg
[~2019-09-21 00:13] MED LIST changes: +BENTYL 20 MG TA20 MG PO; +CHRONULAC30 ML PO
[2019-09-21 00:22] VITALS: Ht 154.9 cm; Wt 86.4 kg
[2019-09-21] MEDS ORDERED: NOVOLOG100 UNIT/1 SQ (00:27)
[2019-09-21 00:39] LABS: BILIRUBIN NEGATIVE (NEGATIVE); GLUCOSE 1000 mg/dL (NEGATIVE); KETONE NEGATIVE (NEGATIVE); NITRITE NEGATIVE (NEGATIVE); SPECIFIC GRAVITY 1.015 (1.005-1.020); UROBILINOGEN NORMAL (NORMAL)
[2019-09-21 00:40] LABS: BACTERIA MODERATE /hpf (NEGATIVE); EPITHELIAL CELLS 0-5 /hpf (0-5); WHITE CELLS - URINE 0-5 /hpf (NEGATIVE)
[2019-09-21 00:41] LABS: HCG URINE NEGATIVE (NEGATIVE)
[2019-09-21 00:50] LABS: UDS - AMPHET NEGATIVE QUAL (NEGATIVE); UDS - BARB NEGATIVE QUAL (NEGATIVE); UDS - BENZO NEGATIVE QUAL (NEGATIVE); UDS - COCAINE NEGATIVE QUAL (NEGATIVE); UDS - OPIATE NEGATIVE QUAL (NEGATIVE); UDS - PCP NEGATIVE QUAL (NEGATIVE); UDS - THC POSITIVE QUAL (NEGATIVE)
[2019-09-21 00:59] LABS: CALC OSMOLALITY 285 mosm/kg (275-300); CALCIUM 8.5 mg/dL (8.5-10.1); CARBON DIOXIDE 24.2 mmol/L (21.0-32.0); CHLORIDE - SERUM 105 mmol/L (98-107); CREATININE - SERUM 0.8 mg/dL (0.6-1.3); GLUCOSE 263 mg/dL (74-106); POTASSIUM - SERUM 4.4 mmol/L (3.5-5.1); SODIUM 138 mmol/L (136-145); UREA NITROGEN 15 mg/dL (7-18); eGFR NON AFRICAN AMERICAN 84 mL/min (90-120)
[2019-09-21 01:00] LABS: BASOPHILS 0.6 % (0-2); EOSINOPHILS 1.4 % (0-7); HEMATOCRIT 43.6 % (36.0-48.0); IMMATURE GRANULOCYTES 0.5 % (0-5); LYMPHOCYTES 31.6 % (15-50); MCH 32.2 pg (26.0-34.0); MCHC 34.4 g/dL (31.0-37.0); MCV 93.6 fL (80.0-100.0); MONOCYTES 8.5 % (2-11); NEUTROPHILS 57.4 % (40-80); PLATELET COUNT 322 10x3/uL (130-400); RBC 4.66 10x6/uL (4.00-5.40); RDW 12.3 % (11.5-14.5); WBC 11.5 10x3/uL (4.8-10.8)
[2019-09-21 01:04] LABS: ALBUMIN 3.3 g/dL (3.4-5.0); ALKALINE PHOSPHATASE 119 U/L (30-120); ALT (SGPT) 16 U/L (10-68); BILIRUBIN - TOTAL 0.11 mg/dL (0.2-1.3); C-REACTIVE PROTEIN 0.9 mg/dL (0.0-0.9); LIPASE 166 U/L (73-393); PROTEIN - SERUM 6.6 g/dL (6.4-8.2)
[2019-09-21] MEDS ORDERED: TYLENOL W/CODEI1 TAB PO (01:40)
[2019-09-21 04:24] VITALS: BP 149/86
== END 2019-09-21 03:48 | disposition home or self-care (01) ==
LOC: D.ER 00:13
PROVIDERS: Family Medicine
DX: N20.0 Calculus of kidney (principal); E11.9 Type 2 diabetes mellitus without complications; Z79.4 Long term (current) use of insulin; R10.9 Unspecified abdominal pain

== ENCOUNTER 2020-03-15 14:32 | Emergency (ER) | payer OTHER ==
[~2020-03-15] VITALS: Ht 154.9 cm; Wt 100.0 kg
[~2020-03-15 14:32] MED LIST changes: +NOVOLOG100 UNIT/1 SQ; +TYLENOL W/CODEI1 TAB PO
[2020-03-15 14:42] VITALS: Ht 154.9 cm; Wt 100.0 kg
[2020-03-15] MEDS ORDERED: BACLOFEN20 M1 PO (16:59)
[2020-03-15] MEDS ORDERED: VOLTAREN75 MG PO (16:59)
[2020-03-15] MEDS ORDERED: METHOCARBAMOL500 MG PO (17:07)
[2020-03-15 17:39] VITALS: BP 93/71
== END 2020-03-15 17:41 | disposition home or self-care (01) ==
LOC: D.ER 14:32
DX: M25.512 Pain in left shoulder (principal); M62.838 Other muscle spasm; E11.9 Type 2 diabetes mellitus without complications; M54.9 Dorsalgia, unspecified; K21.9 Gastro-esophageal reflux disease without esophagitis

== ENCOUNTER → 2020-04-09 15:33 | Outpatient (CLI) | payer OTHER ==
[2020-03-15 14:42] VITALS: BMI 41.6
[~2020-04-09 15:33] MED LIST changes: +BACLOFEN20 M1 PO; +METHOCARBAMOL500 MG PO; +VOLTAREN75 MG PO
== END | disposition home or self-care (01) ==
LOC: D.MRI 15:30
PROVIDERS: ATTEND Family Medicine
DX: M54.2 Cervicalgia (principal)

== ENCOUNTER 2020-04-19 23:54 | Inpatient (IN) | payer OTHER ==
[~2020-04-19] VITALS: Ht 154.9 cm; Wt 92.5 kg
[2020-04-20] VITALS (7 sets, daily range): BP systolic 117–165; BP diastolic 64–114; Ht 154.9 cm; Wt 92.5 kg
[2020-04-20 00:46] LABS: BASOPHILS 0.2 % (0-2); EOSINOPHILS 0.1 % (0-7); HEMATOCRIT 51.7 % (36.0-48.0); HEMOGLOBIN 18.2 g/dL (12-16); IMMATURE GRANULOCYTES 0.4 % (0-5); LYMPHOCYTES 22.7 % (15-50); MCH 32.5 pg (26.0-34.0); MCHC 35.2 g/dL (31.0-37.0); MCV 92.3 fL (80.0-100.0); MEAN PLATELET VOLUME 9.4 fL (7.4-10.4); MONOCYTES 8.2 % (2-11); NEUTROPHILS 68.4 % (40-80); RDW 12.2 % (11.5-14.5); WBC 14.1 10x3/uL (4.8-10.8)
[2020-04-20 00:51] LABS: PLATELET COUNT 587 10x3/uL (130-400)
[2020-04-20 00:58] LABS: CALC OSMOLALITY 281 mosm/kg (275-300); CALCIUM 11.6 mg/dL (8.5-10.1); CARBON DIOXIDE 25.1 mmol/L (21.0-32.0); CHLORIDE - SERUM 90 mmol/L (98-107); POTASSIUM - SERUM 3.5 mmol/L (3.5-5.1); SODIUM 134 mmol/L (136-145); UREA NITROGEN 18 mg/dL (7-18); eGFR NON AFRICAN AMERICAN 65 mL/min (90-120)
[2020-04-20 00:59] LABS: HCG URINE NEGATIVE (NEGATIVE)
[2020-04-20 00:59] LABS: GLUCOSE 320 mg/dL (74-106)
[2020-04-20 01:06] LABS: ALBUMIN 4.5 g/dL (3.4-5.0); ALKALINE PHOSPHATASE 131 U/L (30-120); ALT (SGPT) 24 U/L (10-68); AMYLASE - SERUM 76 U/L (25-115); BILIRUBIN - TOTAL 0.66 mg/dL (0.2-1.3); LIPASE 94 U/L (73-393); PROTEIN - SERUM 9.1 g/dL (6.4-8.2); TROPONIN-I < 0.017 ng/mL (0.000-0.060)
[2020-04-20 01:08] LABS: BILIRUBIN NEGATIVE (NEGATIVE); KETONE MODERATE mg/dL (NEGATIVE); NITRITE NEGATIVE (NEGATIVE); UROBILINOGEN NORMAL mg/dL (< 2)
[2020-04-20 01:09] LABS: BACTERIA FEW HPF (NONE SEEN); WHITE CELLS - URINE 0-5 HPF (0-4)
--- NOTE | 2020-04-20 03:00 | NUR ---
ASSUMED CARE OF PT AT THIS TIME, REPORT RECEIVED FROM DONALD MCNULTY. PT IS LAYING LEFT SIDE. RESPIRATIONS EVEN AND NON LABORED. APPROX 25/MIN. PILLOW GIVEN TO PT FOR COMFORT. COVID SWAB DONE AND DELIVERED TO LAB. PT ON SWING GRINDER. WILL CONTINUE TO MONITOR.
[2020-04-20 03:10] LABS: UDS - AMPHET NEGATIVE QUAL (NEGATIVE); UDS - BARB NEGATIVE QUAL (NEGATIVE); UDS - BENZO NEGATIVE QUAL (NEGATIVE); UDS - COCAINE NEGATIVE QUAL (NEGATIVE); UDS - OPIATE NEGATIVE QUAL (NEGATIVE); UDS - PCP NEGATIVE QUAL (NEGATIVE); UDS - THC POSITIVE QUAL (NEGATIVE)
--- NOTE | 2020-04-20 04:05 | NUR ---
RECEIVED PT TO ROOM VIA WHEELCHAIR. PT AOX 3. ZOFRAN AND NS INFUSING TO RIGHT ANTECUBITAL. PT REQUESTS TO LEAVE SCD'S OFF AT THIS TIME DUE TO PT HAVING HOT FLASHES. PT ORIENTED TO ROOM, CALL LIGHT IN REACH. NURSE WILL CONTINUE TO MONITOR.
[2020-04-20] MEDS ORDERED: ULTRAM50 MG PO (04:27)
[2020-04-20] MEDS ORDERED: LYRICA75 MG PO (04:28)
[2020-04-20 06:56] LABS: ALBUMIN 3.6 g/dL (3.4-5.0); ANION GAP 16.6 mmol/L (8-16); BILIRUBIN - TOTAL 0.48 mg/dL (0.2-1.3); CALCIUM 9.8 mg/dL (8.5-10.1); CARBON DIOXIDE 25.4 mmol/L (21.0-32.0); CHOL - HDL RATIO 5.5 ratio (2.3-4.1); CREATININE - SERUM 0.9 mg/dL (0.6-1.3); LDL-HDL RATIO 3.9 ratio (1.5-3.5); MAGNESIUM - SERUM 1.8 mg/dL (1.8-2.4); PHOSPHOROUS 2.7 mg/dL (2.5-4.9); PROTEIN - SERUM 7.4 g/dL (6.4-8.2); THYROID STIMULATING HORMONE 1.15 uIU/mL (0.36-3.74)
[2020-04-20 07:02] LABS: BASOPHILS 0.2 % (0-2); EOSINOPHILS 0.1 % (0-7); HEMATOCRIT 46.3 % (36.0-48.0); HEMOGLOBIN 16.3 g/dL (12-16); IMMATURE GRANULOCYTES 0.4 % (0-5); LYMPHOCYTES 20.2 % (15-50); MCH 32.8 pg (26.0-34.0); MCHC 35.2 g/dL (31.0-37.0); MCV 93.2 fL (80.0-100.0); MEAN PLATELET VOLUME 9.6 fL (7.4-10.4); MONOCYTES 10.2 % (2-11); NEUTROPHILS 68.9 % (40-80); PLATELET COUNT 461 10x3/uL (130-400); RBC 4.97 10x6/uL (4.00-5.40); RDW 12.3 % (11.5-14.5); WBC 13.8 10x3/uL (4.8-10.8)
[2020-04-20 11:07] LABS: ANION GAP 15.2 mmol/L (8-16); CALCIUM 8.3 mg/dL (8.5-10.1); CARBON DIOXIDE 25.2 mmol/L (21.0-32.0); CREATININE - SERUM 0.9 mg/dL (0.6-1.3); POTASSIUM - SERUM 3.4 mmol/L (3.5-5.1)
[2020-04-20 16:22] LABS: ANION GAP 15.9 mmol/L (8-16); CALCIUM 8.3 mg/dL (8.5-10.1); CARBON DIOXIDE 23.2 mmol/L (21.0-32.0); CREATININE - SERUM 0.9 mg/dL (0.6-1.3); POTASSIUM - SERUM 3.1 mmol/L (3.5-5.1)
[2020-04-20 19:30] LABS: CALC OSMOLALITY 276 mosm/kg (275-300); CARBON DIOXIDE 25.8 mmol/L (21.0-32.0); CHLORIDE - SERUM 102 mmol/L (98-107); CREATININE - SERUM 0.7 mg/dL (0.6-1.3); SODIUM 138 mmol/L (136-145); UREA NITROGEN 14 mg/dL (7-18); eGFR NON AFRICAN AMERICAN > 90 mL/min (90-120)
[2020-04-20 19:32] LABS: GLUCOSE 105 mg/dL (74-106)
--- NOTE | 2020-04-20 20:45 | NUR ---
PT SITTING ON SIDE OF BED. PT RATES PAIN A 9 IN BACK AND NECK. PT HAS HEATING PAD TO HELP WITH PAIN. IV TO RIGHT ANTECUBITAL INFUSING NS @ 125/HR. PT AMBULATES TO BATHROOM. PT HAS NOT HAD BM BUT IS PASSING GAS.
[2020-04-20 23:12] LABS: CALCIUM 8.1 mg/dL (8.5-10.1); CARBON DIOXIDE 26.9 mmol/L (21.0-32.0); CHLORIDE - SERUM 102 mmol/L (98-107); CREATININE - SERUM 0.7 mg/dL (0.6-1.3); SODIUM 138 mmol/L (136-145); UREA NITROGEN 12 mg/dL (7-18); eGFR NON AFRICAN AMERICAN > 90 mL/min (90-120)
[2020-04-20 23:17] LABS: CALC OSMOLALITY 278 mosm/kg (275-300); GLUCOSE 153 mg/dL (74-106); POTASSIUM - SERUM 3.5 mmol/L (3.5-5.1)
[2020-04-21 00:55] VITALS: BP 210/91
[2020-04-21 01:10] VITALS: BP 134/87
[2020-04-21 04:15] VITALS: BP 174/89
[2020-04-21 07:00] VITALS: BP 151/91
--- NOTE | 2020-04-21 09:32 | NUR ---
ORDER FOR APRESOLINE NOT GIVEN D/T PATIENT'S BLOOD PRESSURE 104/58
[2020-04-21 10:41] LABS: BASOPHILS 0.5 % (0-2); EOSINOPHILS 0.9 % (0-7); HEMATOCRIT 39.7 % (36.0-48.0); HEMOGLOBIN 13.6 g/dL (12-16); IMMATURE GRANULOCYTES 0.5 % (0-5); LYMPHOCYTES 48.9 % (15-50); MCH 32.5 pg (26.0-34.0); MCHC 34.3 g/dL (31.0-37.0); MCV 94.7 fL (80.0-100.0); MEAN PLATELET VOLUME 9.1 fL (7.4-10.4); MONOCYTES 8.8 % (2-11); NEUTROPHILS 40.4 % (40-80); RBC 4.19 10x6/uL (4.00-5.40); RDW 12.1 % (11.5-14.5)
[2020-04-21 10:52] LABS: PLATELET COUNT 319 10x3/uL (130-400); WBC 6.3 10x3/uL (4.8-10.8)
[2020-04-21 10:54] LABS: CALC OSMOLALITY 280 mosm/kg (275-300); CALCIUM 7.4 mg/dL (8.5-10.1); CARBON DIOXIDE 25.8 mmol/L (21.0-32.0); CHLORIDE - SERUM 104 mmol/L (98-107); CREATININE - SERUM 0.7 mg/dL (0.6-1.3); MAGNESIUM - SERUM 1.5 mg/dL (1.8-2.4); POTASSIUM - SERUM 3.3 mmol/L (3.5-5.1); SODIUM 138 mmol/L (136-145); UREA NITROGEN 9 mg/dL (7-18); eGFR NON AFRICAN AMERICAN > 90 mL/min (90-120)
[2020-04-21 10:56] LABS: GLUCOSE 213 mg/dL (74-106); PHOSPHOROUS 3.4 mg/dL (2.5-4.9)
[2020-04-21] MEDS ORDERED: LEVOFLOXACIN500 MG PO (11:34)
[2020-04-21] MEDS ORDERED: ZOFRAN ODT4 MG/UDTAB PO (11:35)
--- NOTE | 2020-04-21 12:49 | NUR ---
DISCHARGED PATIENT HOME WITH FAMILY VIA WHEELCHAIR. DISCONTINUED IV CATHETER TIP INTACT. WENT OVER DISCHARGE INSTRUCTIONS WITH PATIENT, VERBALIZED UNDERSTANDING. DENIES ANYTHING FURTHER.
== END 2020-04-21 12:50 | disposition home or self-care (01) | DRG 639 ==
LOC: D.ER 23:54 → D.EDHOLD 04-20 01:47 → D.MS 04-20 01:47 → OBSVTIME 04-20 01:47 → D.MS 04-20 03:35
PROVIDERS: Emergency Medicine; Family Medicine; ADMIT Family Medicine; ATTEND Family Medicine
DX: E11.10 Type 2 diabetes mellitus with ketoacidosis without coma (principal); E11.65 Type 2 diabetes mellitus with hyperglycemia; E78.5 Hyperlipidemia, unspecified; F17.200 Nicotine dependence, unspecified, uncomplicated; F41.9 Anxiety disorder, unspecified; G89.29 Other chronic pain; R11.15 Cyclical vomiting syndrome unrelated to migraine; K21.9 Gastro-esophageal reflux disease without esophagitis; E11.22 Type 2 diabetes mellitus with diabetic chronic kidney disease; N18.9 Chronic kidney disease, unspecified

== ENCOUNTER 2020-10-05 16:59 | Inpatient (IN) | payer OTHER ==
[~2020-10-05] VITALS: Ht 154.9 cm; Wt 95.8 kg
--- NOTE | ~2020-10-05 | HEMODYNAMI ---
PATIENT:CANDI WILSON MEDICAL RECORD: [id number] : 78 LOCATION:[facility] D.[address] [facility]# [id number] ADMISSION DATE: 10/07/20 Generatedon:19:52 Patient name: CANDI WILSON Patient #: [id number] SSN: [id number] : 1980 Date of study: 10/09/2020 Page: Of Hemodynamic Procedure Report Patient Data Patient Demographics Procedure consent was obtained First Name: CANDI Gender: Female Last Name: STEVE : 1980 Middle Initial: M Age: 40 year(s) Patient #: [id number] Race: SSN: [id number] Additional ID: [id number] Contact details Address: [facility] [address] State: [place] City: [place] Zip code: [address] Admission Admission Data Admission Date: 10/07/2020 Admission Time: 15:52 Arrival Date: 10/09/2020 Arrival Time: 0:00 Admit Source: Other Insurance Payor: Private Room #: D.2107 health insurance [facility] #: [id number] Height (in.): 61 BSA: 1.93 (m2) Height (cm.): 154.94 BMI: 39.9 (kg/m2) Weight (lbs.): 211.18 Weight (kg.): 95.79 Lab Results Lab Result Date: 10/09/2020 Lab Result Time: 0:00 Biochemistry Name Units Result Min Max BUN mg/dl 23 --(----)-* 7 18 CK-MB ng/ml 0.6 --(*---)-- 0 3.6 Creatinine mg/dl 0.9 --(-*--)-- 0.6 1.3 eGFR ml/min 73.41173 *-(----)-- 90 120 NONAFRICAN Troponin l ng/ml 0.017 --(-*--)-- 0 0.06 CBC Name Units Result Min Max Hematocrit % 44.6 --(*---)-- 42 54 Hemoglobin g/dl 15.4 --(-*--)-- 13.5 17.5 Procedure Procedure Types Cath Procedure Diagnostic Procedure [facility] w/Coronaries Sedation Charges Moderate Sedation 25-39 minutes Procedure Description Procedure Date Procedure Date: 10/09/2020 Procedure Start Time: 9:30 Procedure End Time: 9:48 Procedure Staff Name Function Robert Corado MD Performing Physician Maritza Aj RT Monitor Basilia Loyd RT Scrub João Sequeira RN Nurse Procedure Data Cath Procedure Fluoroscopy Diagnostic fluoroscopy Total fluoroscopy Time: 7 time: 7 min min Diagnostic fluoroscopy Total fluoroscopy dose: dose: 1195 mGy 1195 mGy Contrast Material Contrast Material Type Amount (ml) Isovue 300 82 Entry Location Entry Primary Successful Side Size Upsize Upsize Entry Closure Hameed ccessful Closure Location (Fr) 1 (Fr) 2 (Fr) Remarks Device Remarks Radial Right 6 Fr Mechanical artery Short Compression Estimated blood loss: 5 ml Diagnostic catheters Device Type Used For End Catheter Placement DIAGNOSTIC [place] 110cm 5 Multi-vessel Fr catheter ([id number]) Angiography DIAGNOSTIC AR1 MOD 5Fr Right Coronary catheter ([id number]) Angiography DIAGNOSTIC JL 4.0 5Fr Left Coronary catheter ([id number]) Angiography Procedure Complications No complications Procedure Medications Medication Administration Route Dosage Oxygen etCO2 Nasal cannula 2 l/min Heparin Flush Bag added to field 2 bags (1000units/500ml NS) 0.9% NaCl I.V. 100 ml/hr Lidocaine 2% added to field 20 Radial Cocktail added to field 1 syringe (Verapamil 2mg/Nitro 400mcg/Heparin 1500units) Zofran I.V. 4 mg Fentanyl I.V. 100 mcg Versed I.V. 2 mg Fentanyl I.V. 100 mcg Versed I.V. 2 mg Fentanyl I.V. 100 mcg Versed I.V. 2 mg Fentanyl I.V. 100 mcg Versed I.V. 2 mg Fentanyl I.V. 100 mcg Versed I.V. 2 mg Radial Cocktail I.A. 1 syringe (Verapamil 2mg/Nitro 400mcg/Heparin 1500units) Hemodynamics Rest BSA: 1.93 (m2) HGB: 15.4 (g/dl) O2 Consumption: Estimated: 226.97 (ml/min) O2 Co nsumption indexed: Estimated:117.6 (ml/min/m) Heart Rate: 113 (bpm) Pressure Samples Time Site Value (mmHg) Purpose Heart Use Rate(bpm) 9:34 LV 157/11,30 Snapshot 104 9:35 AO 126/81(101) Pullback 99 9:35 LV 159/0,17 Pullback 99 Gradients Valve Time Site 1 Site 2 Mean SEP/DFP Peak To Heart Use (mmHg) (sec/min) Peak Rate (mmHg) (bpm) Aortic 9:35 LV AO 15 21 33 99 159/0,17 126/81(101) Calculations Valve P-P Mean Valve Index Valve Source Name Gradient Area Flow (cm2) Aortic 33 15 33 15 Snapshots Pre Cath Intra NCS Post Cath Vital Signs Time Heart Resp SPO2 etCO2 NIBP (mmHg) Rhythm Pain Sedation Rate (ipm) (%) (mmHg) Status Level (bpm) 9:16:37 100 23 94 0 Time NSR 0 (11) 10(A) Exceeded , No pain 9:19:58 107 17 96 0 138/105(129) NSR 0 (11) 10(A) , No pain 9:24:57 88 20 0 Measuring NSR 0 (11) 10(A) , No pain 9:25:20 97 12 95 0 140/66(120) NSR 0 (11) 10(A) , No pain 9:29:38 79 3 95 0 129/75(96) NSR 0 (11) 10(A) , No pain 9:33:45 105 14 94 0 124/87(123) NSR 0 (11) 10(A) , No pain 9:37:59 105 15 93 0 124/69(88) NSR 0 (11) 10(A) , No pain 9:42:09 100 13 91 0 121/71(93) NSR 0 (11) 10(A) , No pain 9:47:08 103 15 91 0 Measuring NSR 0 (11) 10(A) , No pain 9:47:14 105 15 94 0 131/84(114) NSR 0 (11) 10(A) , No pain Medications Time Medication Route Dose Verified Delivered Reason Notes Effectiveness by by 9:16:35 Oxygen etCO2 2 l/min Robert Moyer Per Nasal Mak Sequeira RN physician cannula 9:16:47 Heparin Flush added 2 bags Robert João used for Bag to Mak Sequeira RN procedure (1000units/500ml field NS) 9:16:55 0.9% NaCl I.V. 100 Robert João Per ml/hr Mak Sequeira RN physician 9:17:03 Lidocaine 2% added 20ml Robert João for local to vial Mak Sequeira RN anesthetic field 9:17:11 Radial Cocktail added 1 Robert João used for (Verapamil to syringe Mak Sequeira RN procedure 2mg/Nitro field 400mcg/Heparin 1500units) 9:17:32 Zofran I.V. 4 mg Robert João for nausea Mak Sequeira RN 9:20:17 Fentanyl I.V. 100 mcg Robert João for sedation Mak Sequeira RN 9:20:23 Versed I.V. 2 mg Robert João for sedation Mak Sequeira RN 9:22:21 Fentanyl I.V. 100 mcg Robert João for sedation Mak Sequeira RN 9:22:23 Versed I.V. 2 mg Robert João for sedation Mak Sequeira RN 9:24:37 Fentanyl I.V. 100 mcg Robert João for sedation Mak Sequeira RN 9:24:40 Versed I.V. 2 mg Robert João for sedation Mak Sequeira RN 9:26:18 Fentanyl I.V. 100 mcg Robert João for sedation Mak Sequeira RN 9:26:21 Versed I.V. 2 mg Robert João for sedation Mak Sequeira RN 9:29:08 Fentanyl I.V. 100 mcg Robert João for sedation Mak Sequeira RN 9:29:12 Versed I.V. 2 mg Robert João for sedation Mak Sequeira RN 9:32:28 Radial Cocktail I.A. 1 Robert João for (Verapamil syringe Mak Sequeira RN vasodilation 2mg/Nitro 400mcg/Heparin 1500units) Procedure Log Time Note 8:40:13 Informed consent obtained and on chart 8:40:29 Diagnostic Cath Status : Elective 8:43:37 Arrival Date: 10/09/2020 12:00:00 AM 8:43:38 Admit Source: Other 8:43:42 Insurance Payor : Private health insurance 8:44:03 ACC Patient presents with Stable Angina CCS Anginal Class 2--Slight limitation of ordinary activity. 8:44:35 Procedure Status Urgent Heart Cath (IP). 8:44:37 Time tracking: Regular hours (M-F 7:00 - 5:00) 8:44:42 Plan of Care:Hemodynamics will remain stable., Cardiac rhythm will remain stable., Comfort level will be maintained., Respiratory function will remain adequate., Patient/ family verbilizes understanding of procedure., Procedure tolerated without complication., Recovers from procedure without complications.. 8:45:13 Patient Height : 61 inches 8:45:17 Patient Weight : 211.18 lbs 8:45:55 Lab Result : CK-MB 0.6 ng/ml 8:45:55 Lab Result : Troponin l 0.017 ng/ml 8:45:55 Lab Result : BUN 23 mg/dl 8:45:55 Lab Result : Creatinine 0.9 mg/dl 8:45:55 Lab Result : eGFR NONAFRICAN 73.82660 ml/min 8:45:55 Lab Result : Hemoglobin 15.4 g/dl 8:45:55 Lab Result : Hematocrit 44.6 % 8:55:38 Basilia Loyd RT(R) sent for patient. Start room use. 9:13:25 Vital chart was started 9:16:35 Oxygen 2 l/min etCO2 Nasal cannula was administered by João Sequeira RN; Per physician; Verbal order read back and verified. 9:16:47 Heparin Flush Bag (1000units/500ml NS) 2 bags added to field was administered by João Sequeira RN; used for procedure; Verbal order read back and verified. 9:16:55 0.9% NaCl 100 ml/hr I.V. was administered by João Sequeira RN; Per physician; Verbal order read back and verified. 9:17:03 Lidocaine 2% 20ml vial added to field was administered by João Sequeira RN; for local anesthetic; Verbal order read back and verified. 9:17:11 Radial Cocktail (Verapamil 2mg/Nitro 400mcg/Heparin 1500units) 1 syringe added to field was administered by João Sequeira RN; used for procedure; Verbal order read back and verified. 9:17:32 Zofran 4 mg I.V. was administered by João Sequeira RN; for nausea; Verbal order read back and verified. 9:17:39 Patient received from Med II to CCL 2 Alert and oriented. Tansferred to table in Supine position. 9:17:40 Warm blankets applied, and viki hugger turned on for patient comfort. 9:17:41 Correct patient and procedure confirmed by team. 9:17:41 ECG and BP/O2 sat monitors applied to patient. 9:17:42 Baseline sample Acquired. 9:17:48 Rhythm: sinus tachycardia 9:17:50 Full Disclosure recording started 9:17:54 H&P Date Dictated: 10/09/2020 New H&P dictated by physician.. 9:17:55 Pre-procedure instructions explained to patient. 9:17:55 Pre-op teaching completed and patient verbalized understanding. 9:17:58 Family in patients room. 9:17:59 Patient NPO since Midnight. 9:18:02 Is the patient allergic to Iodine/contrast media? Yes. 9:18:03 Was the patient premedicated? Yes 9:18:04 Is patient on blood thinner?No 9:18:05 Patient diabetic? Yes. 9:18:12 If diabetic: On Metformin? No 9:18:14 Previous problem with sedation/anesthesia? No ? 9:18:16 Snore? Yes 9:18:17 Sleep apnea? No 9:18:18 Deviated septum? No 9:18:18 Opens mouth fully? Yes 9:18:19 Sticks out tongue? Yes 9:18:21 Airway obstruction? No ? 9:18:23 Dentures? No ? 9:18:26 Pre procedure: right dorsailis pedis pulse 2+ Normal; easily identifiable; not easily obliterated 9:18:28 Pre procedure: left dorsailis pedis pulse 2+ Normal; easily identifiable; not easily obliterated 9:18:31 Patient pain scale 0/10 ?. 9:18:38 IV patent on arrival in right forearm with 0.9% NaCl at [facility]. 9:18:42 Lab results completed and on chart. 9:18:46 Right Radial & Right Groin area was prepped with chlora-prep and draped in sterile fashion 9:18:47 Alarms reviewed by RWinifred N. 9:18:48 Sharps counted by scrub and verified by RWinifredNWinifred 9:18:48 Physician arrived 9:18:49 --------ALL STOP TIME OUT------ 9:18:50 Final Timeout: patient, procedure, and site verified with staff and physician. All members of the team are in agreement. 9:18:52 Right Radial & Right Groin site verified by team. 9:18:55 Fire Safety Assessment: A--An alcohol-based skin anteseptic being used preoperatively., C--Open oxygen or nitrous oxide is being used., D--An ESU, laser, or fiber-optic light is being used. 9:18:58 Physical assessment completed. ASA score P 2 - A patient with mild systemic disease as per Robert Corado MD. 9:19:04 2) 60-89 Mildly reduced kidney function, and other findings (as for stage 1) point to kidney disease. 9:20:02 Maximum allowable contrast dose (3.7 X eGFR X 0.75)203 ml. 9:20:06 Sedation plan: IV Moderate Sedation Medication:Versed, Fentanyl 9:20:13 Use device set Radial Dx or PCI 9:20:14 ACIST Syringe (24738) opened to sterile field. 9:20:14 Medline Cath Pack ([id number]) opened to sterile field. 9:20:14 Bag Decanter (2001S) opened to sterile field. 9:20:15 ACIST Hand Control (59107) opened to sterile field. 9:20:15 ACIST Manifold (60307) opened to sterile field. 9:20:16 Tegaderm 4 x 4 (1626W) opened to sterile field. 9:20:16 MBrace Wrist Support (605929649) opened to sterile field. 9:20:17 Fentanyl 100 mcg I.V. was administered by João Sequeira RN; for sedation; Verbal order read back and verified. 9:20:17 NEEDLE Cook 21G 4cm Radial (N44177) opened to sterile field. 9:20:18 SHEATH 6FR RAIN (4329237) opened to sterile field. 9:20:19 EMERALD Guide Wire (629-308) opened to sterile field. 9:20:23 Versed 2 mg I.V. was administered by João Sequeira RN; for sedation; Verbal order read back and verified. 9:22:21 Fentanyl 100 mcg I.V. was administered by João Sequeira RN; for sedation; Verbal order read back and verified. 9:22:23 Versed 2 mg I.V. was administered by João Sequeira RN; for sedation; Verbal order read back and verified. 9:24:37 Fentanyl 100 mcg I.V. was administered by João Sequeira RN; for sedation; Verbal order read back and verified. 9:24:40 Versed 2 mg I.V. was administered by João Sequeira RN; for sedation; Verbal order read back and verified. 9:26:18 Fentanyl 100 mcg I.V. was administered by João Sequeira RN; for sedation; Verbal order read back and verified. 9:26:21 Versed 2 mg I.V. was administered by João Sequeira RN; for sedation; Verbal order read back and verified. 9:29:08 Fentanyl 100 mcg I.V. was administered by João Sequeira RN; for sedation; Verbal order read back and verified. 9:29:12 Versed 2 mg I.V. was administered by João Sequeira RN; for sedation; Verbal order read back and verified. 9:30:19 Procedure started. 9:30:24 Local anesthetic to right radial artery with Lidocaine 2% by Robert Corado MD.INITIAL ACCESS ONLY 9:31:34 A 6 Fr Short sheath was inserted into the Right Radial artery 9:32:28 Radial Cocktail (Verapamil 2mg/Nitro 400mcg/Heparin 1500units) 1 syringe I.A. was administered by João Sequeira RN; for vasodilation; Verbal order read back and verified. 9:33:25 A DIAGNOSTIC [place] 110cm 5 Fr catheter ([id number]) was advanced over the wire and used for Multi-vessel Angiography. 9:34:45 LV hemodynamics recorded. 9:34:46 LV gram done using SIDHU 9:34:49 Injector settings: Ml/sec: 5, Volume: 15, 9:35:02 EF : 60 % 9:35:42 LCA angiography performed. 9:35:45 Injector settings: Ml/sec: 3, Volume: 6, 9:37:50 Catheter removed. 9:38:35 A DIAGNOSTIC AR1 MOD 5Fr catheter ([id number]) was advanced over the wire and used for Right Coronary Angiography. 9:40:23 RCA angiography performed. 9:40:26 Injector settings: Ml/sec: 3, Volume: 6, 9:41:08 Catheter removed. 9:41:20 A DIAGNOSTIC JL 4.0 5Fr catheter ([id number]) was advanced over the wire and used for Left Coronary Angiography. 9:43:35 Catheter removed. unable to cannulate vessel. 9:44:33 GUIDE 6FR EBU 3.0 catheter ([id number]) opened to sterile field. 9:45:16 6 Fr EBU 3 guide catheter was inserted over the wire 9:45:33 LCA angiography performed. 9:45:36 Injector settings: Ml/sec: 3, Volume: 6, 9:46:11 Catheter removed. 9:46:13 ZEPHYR REGULAR TR BAND (029639) opened to sterile field. 9:46:39 Sheath removed intact; hemostasis achieved with Mechanical Compression to the Right Radial artery. 9:46:42 Procedure ended.(Physican Out) 9:46:59 Fluoroscopy time 07.00 minutes. 9:47:03 Fluoroscopy dose: 1195 mGy 9:47:03 Flurop Dose total: 1195 9:47:17 Dose Area Product 19679 mGy/cm. 9:47:21 Contrast amount:Isovue 300 82ml. 9:47:24 Maximum allowable dose exceeded? No. 9:47:25 Sharps counted by scrub and verified by R.N. 9:47:27 [place] band inflated with 10cc of air. 9:47:28 Insertion/operative site no bleeding no hematoma. 9:47:31 Post right radial artery:stable 9:47:33 Post Procedure Pulses reassessed and unchanged 9:47:35 Post procedure rhythm: unchanged. 9:47:38 Estimated blood loss: 5 ml 9:47:39 Post procedure instruction explained to patient.Patient verbalizes understanding. 9:47:40 Patient needs reinforcement of post procedure teaching. 9:48:14 Procedure type changed to Cath procedure, Diagnostic procedure, LHC, [facility] w/Coronaries, Sedation Charges, Moderate Sedation 25-39 minutes 9:48:14 Procedure and supply charges have been captured, reviewed, submitted and are correct. 9:48:18 Procedure Complication : No complications 9:48:20 Vital chart was stopped 9:48:21 [facility] Findings: mild to moderate CAD (<70%) 9:48:23 See physician's report for complete and final results. 9:48:26 Report given to Med II. 9:48:29 Patient transfered to Med II with Stretcher. 9:48:31 Procedure ended. 9:48:31 Full Disclosure recording stopped 9:48:38 End room use (Document Last) 9:50:53 End room use (Document Last) 9:52:17 End room use (Document Last) Device Usage Item Name Manufacture Quantity Catalog Hospital Part Current Minima l Lot# / Number Charge Number Stock Stock Serial# Code ACIST Acist 1 81218 849962 226773 183647 20 Syringe Medical (87060) Systems Inc Medline Medline 1 [id number] 316901 47988 690167 5 Cath Pack ([id number]) Bag Microtek 1 2001S 025867 85640 442534 5 Decanter Medical Inc. () ACIST Hand Acist 1 53883 474294 299289 482820 5 Control Medical (94029) Systems Inc ACIST Acist 1 34220 321817 255295 152160 5 Manifold Medical (99529) Systems Inc Tegaderm 4 3M 1 1626W 232261 421780 028617 5 x 4 (1626W) MBrace Advanced 1 140-0250-00 098983 54760 228559 5 Wrist Vascular Support Dynamics (410856283) NEEDLE Localisto Medical 1 W26241 160382 528033 689706 5 21G 4cm Radial (I14112) SHEATH 6FR Cardinal 1 8566284 270236 9911212 791278 5 [facility] (0635779) EMERALD Cardinal 1 502455 450211 926909 485764 5 Guide Wire [facility] (181-724) DIAGNOSTIC Terumo 1 40-9775 526501 261528 195846 5 [place] 110cm 5 Fr catheter (097378) DIAGNOSTIC Cardinal 1 863042V 345468 968328 247558 15 AR1 MOD 5Fr Health catheter (772725M) DIAGNOSTIC Cardinal 1 116535U 306276 936504 065025 10 JL 4.0 5Fr Health catheter (670543V) GUIDE 6FR Medtronic 1 [id number] 621597 67246 561797 0 EBU 3.0 catheter (VR3FPU03) ZEPHYR Cardinal 1 229735 251622 6299371 771956 5 REGULAR TR Health BAND (718567) Signature Audit [place] Stage Time Signature Unsigned Intra-Procedure 10/09/2020 Maritza Aj 9:50:53 AM RT(R) Intra-Procedure 10/09/2020 João Sequeira 9:52:17 AM RN Intra-Procedure 10/09/2020 Robert Corado MD 9:52:48 AM Signatures Performing Physician : Signature : Robert Corado MD Date : Time : Monitor : Maritza Aj RT Signature : Date : Time : Nurse : João Sequeira RN Signature : Date : Time : [address] [address]
--- NOTE | ~2020-10-05 | EC ---
PATIENT:CANDI WILSON DATE OF SERVICE: 10/07/20 SEX: F MEDICAL RECORD: [id number] DATE OF : [birth year] LOCATION:D.M2 D.210 AGE OF PATIENT: 40 ADMISSION DATE: 10/07/20 REFERRING PHYSICIAN: INTERPRETING PHYSICIAN: NASREEN GERBER MD ECHOCARDIOGRAM REPORT ECHO CHARGES 4 ECHO COMPLETE Date: 10/07/20 CLINICAL DIAGNOSIS: CHEST PAIN, HYPOTENSION ECHOCARDIOGRAPHIC MEASUREMENTS (adult normal given) AC root (d.<3.7cm) 3.2 cm LV Septum d (<1.2 cm> 1.3 cm Valve Excursion 1.5 cm LV Septum (systole) 1.4 cm Left Atria (s.<4.0cm> 3.6 cm LVPW d(<1.2cm) 1.3 cm RV (d.<2.3cm) 3.1 cm LVPW (sytole) 1.4 cm LV diastole(<5.6CM) 4.6 cm MV E-F(>70mm/sec) cm LV systole 3.4 cm LVOT Diameter 1.9 cm MV exc.(>10mm) 1.6 cm Est.ejection fraction (50-75%) % DOPPLER: LVIT cm/sec A 73.0 cm/sec E 103.0 cm/sec LA cm/sec RVSP 25 mmHg LVOT 100 cm/sec AOP1/2T m/s Asc. Ao 126 cm/sec RVOT 76 cm/sec RA cm/sec PA 102 cm/sec AV Gradient Peak 6.33 mmHg AV Mean 3.23 mmHg AV Area 2.4 cm MV Gradient Peak 7.64 mmHg MV Mean 1.90 mmHg MV Area cm COMMENTS: Core Paster: Maegan GOINS Compliance Examiner: 5 Dr. Gerber TAPE# PACS Pericardial Effusion N DATE OF SERVICE: 10/07/2020 CLINICAL HISTORY: Tachycardia/chest pain. INTERPRETATION: Normal left ventricular chamber size and contractile function, ejection fraction of 60%. FINDINGS: Left atrial chamber appears normal. Right atrium and right ventricular chamber size and function appears normal. Aortic valve appears normal. No aortic stenosis or regurgitation. Mitral valve appears normal. ECHOCARDIOGRAM REPORT [id number] CANDI WILSON Trace mitral regurgitation. Tricuspid valve appears normal. No tricuspid regurgitation. Pulmonic valve appeared normal. No pulmonary regurgitation. No pericardial effusion visualized. IMPRESSION: Normal left ventricular chamber size and contractile function, ejection fraction 60%. TRANSINT:[id number] Voice Confirmation ID: [id number] DOCUMENT ID: [id number] NASREEN GERBER MD CC: [id number] DICTATION DATE: 10/07/201445 ENERGY ADMINISTRATOR: 10/07/202205 ADM IN [facility] [address] [place] [address]
[~2020-10-05 16:59] MED LIST changes: +CLINDAMYCIN HC300 MG PO; +DUEXIS 800-26.1 EACH; +DUEXIS 800-26.1 EACH PO; +HYDROCODON-ACE1 EA10 PO; +INDOCIN-SR75 MG PO; +LEVOFLOXACIN500 MG PO; +LYRICA75 MG PO; +MEDROL DOSE PACK4 MG PO; +PHENERGAN50 MG RC; +ZOFRAN ODT4 MG/UDTAB PO
[2020-10-05 17:52] LABS: BASOPHILS 0.5 % (0-2); EOSINOPHILS 1.1 % (0-7); HEMATOCRIT 42.1 % (36.0-48.0); HEMOGLOBIN 14.5 g/dL (12-16); IMMATURE GRANULOCYTES 0.5 % (0-5); LYMPHOCYTES 34.4 % (15-50); MCH 32.5 pg (26.0-34.0); MCHC 34.4 g/dL (31.0-37.0); MCV 94.4 fL (80.0-100.0); MEAN PLATELET VOLUME 8.9 fL (7.4-10.4); MONOCYTES 7.3 % (2-11); NEUTROPHIL ABS# 5.39 10x3/uL (1.56-6.13); NEUTROPHILS 56.2 % (40-80); PLATELET COUNT 404 10x3/uL (130-400); RBC 4.46 10x6/uL (4.00-5.40); WBC 9.6 10x3/uL (4.8-10.8)
[2020-10-05 17:58] LABS: CALC OSMOLALITY 279 mosm/kg (275-300); CARBON DIOXIDE 25.7 mmol/L (21.0-32.0); CHLORIDE - SERUM 102 mmol/L (98-107); CREATININE - SERUM 0.9 mg/dL (0.6-1.3); POTASSIUM - SERUM 3.9 mmol/L (3.5-5.1); SODIUM 138 mmol/L (136-145); UREA NITROGEN 16 mg/dL (7-18); eGFR NON AFRICAN AMERICAN 73 mL/min (90-120)
[2020-10-05 17:59] LABS: GLUCOSE 160 mg/dL (74-106)
[2020-10-05 18:01] LABS: APTT 23.9 SECONDS (22.8-39.4); INR 1.03 (0.85-1.17); PROTIME 12.5 SECONDS (11.6-15.0)
[2020-10-05 18:14] LABS: ALBUMIN 3.4 g/dL (3.4-5.0); ALKALINE PHOSPHATASE 90 U/L (30-120); ALT (SGPT) 37 U/L (10-68); BILIRUBIN - TOTAL 0.21 mg/dL (0.2-1.3); CKMB 0.5 U/L (0.0-3.6); CREATINE KINASE 81 UL (21-215); MAGNESIUM - SERUM 1.7 mg/dL (1.8-2.4); PROTEIN - SERUM 6.8 g/dL (6.4-8.2)
[2020-10-05 18:16] LABS: TROPONIN-I < 0.017 ng/mL (0.000-0.060)
[2020-10-05 18:44] LABS: AMYLASE - SERUM 76 U/L (25-115); LIPASE 77 U/L (73-393)
[2020-10-05 20:00] VITALS: BP 137/65
[2020-10-05 21:00] VITALS: BP 145/66
[2020-10-05] MEDS ORDERED: PEPCID40 MG PO (21:27)
[2020-10-05] MEDS ORDERED: CARAFATE1 G PO (21:27)
[2020-10-05] MEDS ORDERED: ZOFRAN ODT4 MG/UDTAB PO (21:27)
[2020-10-05 22:00] VITALS: BP 141/75
--- NOTE | 2020-10-05 23:30 | NUR ---
PT ARRIVED TO ROOM, FRIEND AT BEDSIDE. C/O CHEST/THROAT PAIN THAT COMES AND GOES. STATED THE CARAFATE HELPED IN ER. DENIES FURTHER NEEDS. EDUCATED ON CL FOR ASSITANCE. WILL CTM.
[2020-10-06] VITALS (7 sets, daily range): BP systolic 95–145; BP diastolic 37–102; BMI 40.0
--- NOTE | 2020-10-06 03:37 | NUR ---
I have reviewed this patient and I concur with the Shift Assessment completed by the Licensed Practical Nurse today this shift.
[2020-10-06 04:08] LABS: BASOPHILS 0.5 % (0-2); EOSINOPHILS 1.1 % (0-7); HEMATOCRIT 39.9 % (36.0-48.0); HEMOGLOBIN 13.6 g/dL (12-16); IMMATURE GRANULOCYTES 0.4 % (0-5); LYMPHOCYTE ABS# 3.79 10x3/uL (1.18-3.74); LYMPHOCYTES 34.4 % (15-50); MCH 32.3 pg (26.0-34.0); MCHC 34.1 g/dL (31.0-37.0); MCV 94.8 fL (80.0-100.0); MEAN PLATELET VOLUME 8.9 fL (7.4-10.4); NEUTROPHIL ABS# 6.13 10x3/uL (1.56-6.13); NEUTROPHILS 55.6 % (40-80); PLATELET COUNT 397 10x3/uL (130-400); RBC 4.21 10x6/uL (4.00-5.40); RDW 11.9 % (11.5-14.5)
[2020-10-06 04:31] LABS: CKMB 0.7 U/L (0.0-3.6); CREATINE KINASE 70 UL (21-215)
[2020-10-06 04:32] LABS: TROPONIN-I < 0.017 ng/mL (0.000-0.060)
[2020-10-06 04:45] LABS: CALC OSMOLALITY 285 mosm/kg (275-300); CALCIUM 8.4 mg/dL (8.5-10.1); CARBON DIOXIDE 27.1 mmol/L (21.0-32.0); CHLORIDE - SERUM 104 mmol/L (98-107); CREATININE - SERUM 0.8 mg/dL (0.6-1.3); MAGNESIUM - SERUM 1.8 mg/dL (1.8-2.4); PHOSPHOROUS 3.6 mg/dL (2.5-4.9); POTASSIUM - SERUM 3.8 mmol/L (3.5-5.1); SODIUM 138 mmol/L (136-145); UREA NITROGEN 17 mg/dL (7-18); eGFR NON AFRICAN AMERICAN 84 mL/min (90-120)
[2020-10-06 04:48] LABS: GLUCOSE 236 mg/dL (74-106)
--- NOTE | 2020-10-06 09:03 | NUR ---
PT ALERT AND ORIENTED, LYING IN BED RESTING COMFORTABLY. WOKE EASILY TO VERBAL STIMULI. ADMINISTERED I/V MEDICATIONS WITH EAS, NO COMPLAINTS OR CONCERNS AT THIST COURTNEY. CL IN REACH, SRX2.
[2020-10-06 09:28] LABS: CREATINE KINASE 72 UL (21-215)
[2020-10-06 09:29] LABS: CKMB 0.5 U/L (0.0-3.6); TROPONIN-I < 0.017 ng/mL (0.000-0.060)
--- NOTE | 2020-10-06 12:42 | NUR ---
PT AWAKE AND ORIENTED, WALKING AROUND UNIT, MASK IN PLACE. NO NOTED/REPORTED DIFFICULTY AMBULATING UNASSISTED. STATES SHE BELIEVES ANTACID MEDICATION IS HELPING HER CHEST PAIN. NO COMPLAINTS OR CONCERNS AT THIS TIME.
[2020-10-06 15:27] LABS: CREATINE KINASE 80 UL (21-215); TROPONIN-I < 0.017 ng/mL (0.000-0.060)
--- NOTE | 2020-10-06 17:06 | NUR ---
PT ALERT AND ORIENTED, SITTING IN BED EATING MCDONALDS HER TWO FRIENDS BROUGHT IN. TWO FRIENDS AT BEDSIDE. PT TOOK SHOWER UNASSISTED. LINNENS CHANGED. NO COMPLAINTS OR CONCERNS AT THIS TIME. CL IN REACH
--- NOTE | 2020-10-06 19:30 | NUR ---
PT IN BED, AAO X 3, RESP EVEN AND UNLABORED, NO DISTRESS NOTED, CL IN REACH, SR UP X 2.
[2020-10-07 00:30] VITALS: BP 130/79
[2020-10-07 04:30] VITALS: BP 128/60
--- NOTE | 2020-10-07 04:37 | NUR ---
I have reviewed this patient and I concur with the Shift Assessment completed by the Licensed Practical Nurse today this shift.
[2020-10-07 04:39] LABS: BASOPHILS 0.5 % (0-2); EOSINOPHILS 2.1 % (0-7); HEMATOCRIT 41.2 % (36.0-48.0); HEMOGLOBIN 13.8 g/dL (12-16); IMMATURE GRANULOCYTES 0.5 % (0-5); LYMPHOCYTE ABS# 3.64 10x3/uL (1.18-3.74); LYMPHOCYTES 44.8 % (15-50); MCHC 33.5 g/dL (31.0-37.0); MCV 95.6 fL (80.0-100.0); MEAN PLATELET VOLUME 9.1 fL (7.4-10.4); MONOCYTES 8.1 % (2-11); NEUTROPHIL ABS# 3.58 10x3/uL (1.56-6.13); PLATELET COUNT 385 10x3/uL (130-400); RBC 4.31 10x6/uL (4.00-5.40); RDW 11.9 % (11.5-14.5)
[2020-10-07 04:47] LABS: WBC 8.1 10x3/uL (4.8-10.8)
[2020-10-07 04:56] LABS: CALCIUM 8.6 mg/dL (8.5-10.1); CARBON DIOXIDE 28.5 mmol/L (21.0-32.0); CHLORIDE - SERUM 103 mmol/L (98-107); CREATININE - SERUM 0.8 mg/dL (0.6-1.3); MAGNESIUM - SERUM 2.2 mg/dL (1.8-2.4); PHOSPHOROUS 3.7 mg/dL (2.5-4.9); SODIUM 136 mmol/L (136-145); UREA NITROGEN 20 mg/dL (7-18); eGFR NON AFRICAN AMERICAN 84 mL/min (90-120)
[2020-10-07 04:59] LABS: CALC OSMOLALITY 278 mosm/kg (275-300); GLUCOSE 169 mg/dL (74-106); POTASSIUM - SERUM 4.5 mmol/L (3.5-5.1)
--- NOTE | 2020-10-07 08:27 | NUR ---
PT ALERT AND ORIENTED, SITTING UP IN BED EATING BREAFKAST. ANSWERED ALL QUESTIONS TO THE BEST OF MY ABILITY. PT TOOK ALL MEDICATIONS WITHOUT COMPLICATIONS. REUQESTS NEW I/V LOCATIONS D/T PAIN IN HAND. I/V FLUSHES AND DRAWS BLOOD, BUT NOTED I/V IN PAINFUL SPOT. WILL ACCOMIDATE IF ABLE. CL IN REACH, SRX2, NO FAMILY AT BEDSIDE.
[2020-10-07 08:35] VITALS: BP 92/31
[2020-10-07 12:10] VITALS: BP 85/37
--- NOTE | 2020-10-07 16:49 | NUR ---
PT ALERT AND ORIENTED, LYING IN BED RESITNG. STATES CHEST PAINS HAVE COME AND GONE VARYING IN INTENSITY. ADMINISTERED OTD MEDICATION PER MD ORDER. STATES THAT IT SEEMED TO HELP AND ALLOWED HER TO REST COMFORTABLY AT THIS TIME. PT HAS PERIODS OF INCREASED ANXIETY WHERE SHE BECOMES TEARFUL AND EASILY AGITATED. NO COMPLAINTS OR CONCERNS AT THIS TIME. CL IN REACH, SRX1. NO FAMILY AT BEDSIDE.
--- NOTE | 2020-10-07 17:49 | NUR ---
I have reviewed this patient and I concur with the Shift Assessment completed by the Licensed Practical Nurse today this shift.
[2020-10-07 22:30] VITALS: BP 112/92
[2020-10-08 04:00] VITALS: BP 125/58
[2020-10-08 06:09] LABS: BASOPHILS 0.3 % (0-2); HEMATOCRIT 39.8 % (36.0-48.0); HEMOGLOBIN 13.4 g/dL (12-16); IMMATURE GRANULOCYTES 0.5 % (0-5); LYMPHOCYTE ABS# 3.44 10x3/uL (1.18-3.74); LYMPHOCYTES 39.6 % (15-50); MCHC 33.7 g/dL (31.0-37.0); MEAN PLATELET VOLUME 9.4 fL (7.4-10.4); MONOCYTES 6.8 % (2-11); NEUTROPHIL ABS# 4.42 10x3/uL (1.56-6.13); NEUTROPHILS 50.8 % (40-80); PLATELET COUNT 382 10x3/uL (130-400); RBC 4.19 10x6/uL (4.00-5.40); RDW 12.1 % (11.5-14.5); WBC 8.7 10x3/uL (4.8-10.8)
[2020-10-08 06:21] LABS: CALC OSMOLALITY 282 mosm/kg (275-300); CALCIUM 8.5 mg/dL (8.5-10.1); CARBON DIOXIDE 26.4 mmol/L (21.0-32.0); CHLORIDE - SERUM 104 mmol/L (98-107); CREATININE - SERUM 0.8 mg/dL (0.6-1.3); PHOSPHOROUS 3.7 mg/dL (2.5-4.9); SODIUM 137 mmol/L (136-145); UREA NITROGEN 19 mg/dL (7-18); eGFR NON AFRICAN AMERICAN 84 mL/min (90-120)
[2020-10-08 06:25] LABS: GLUCOSE 232 mg/dL (74-106)
--- NOTE | 2020-10-08 08:06 | NUR ---
PATIENT LEAVING FOR STRESS TEST.
--- NOTE | 2020-10-08 08:56 | NUR ---
NURSE CALLS LEAD CARE MANAGER TO VERIFY OKAY TO GIVE MORNING BREAKFAST. NO ANSWER. WILL CALL BACK. PATIENT BACK FROM STRESS TEST.
[2020-10-08 08:58] VITALS: BP 150/81
--- NOTE | 2020-10-08 09:00 | NUR ---
NURSE GOES INTO ROOM AFTER WATER FILTERER HELPER LETS NURSE KNOW THAT PATIENT'S ROOM SMELLS VERY STRONGLY OF MARIJUANA. NURSE NOTICES ROOM IS VERY STRONG OF ODOR. NURSE PRACTIONER WAS TOLD OF THIS AND ALSO REPORTS SMELLING THIS.
--- NOTE | 2020-10-08 09:31 | NUR ---
NURSE DELIVERS BREAKFAST TRAY TO PATIENT. NURSE LETS INCIDENT ANALYST KNOW THAT SHE HAS FINISHED HER STRESS TEST.
[2020-10-08] MEDS ORDERED: LISINOPRIL5 MG PO (09:43)
[2020-10-08] MEDS ORDERED: LIPITOR20 MG PO (09:43)
--- NOTE | 2020-10-08 10:49 | NUR ---
PT GONE FOR PATIENT'S 2ND PART OF STRESS TEST.
--- NOTE | 2020-10-08 11:16 | NUR ---
PATIENT JUST GOT BACK FROM STRESS TEST.
[2020-10-08 13:02] VITALS: Ht 154.9 cm; Wt 95.8 kg
--- NOTE | 2020-10-08 13:37 | NUR ---
NURSE PAGES CARDIOLOGY TO TALK WITH THEM ABOUT PATIENT'S STRESS TEST.
--- NOTE | 2020-10-08 15:40 | NUR ---
PATIENT FELL IN FLOOR AT THIS TIME, NURSE CHECKS VITALS, ORDERS XRAYS DUE TO PATIENT COMPLAINING OF SHOULDER PAIN AND RIB PAIN. NURSE CALLS CARDIOLOGY TO REPORT TO THEM ABOUT PATIENT FALLING AND GETTING DIZZY. PATIENT BACK INTO BED.
[2020-10-08 15:52] LABS: CHOL - HDL RATIO 4.4 ratio (2.3-4.1); LDL-HDL RATIO 1.8 ratio (1.5-3.5)
[2020-10-08 16:10] VITALS: BP 110/75
[2020-10-08 16:28] LABS: CKMB 0.6 U/L (0.0-3.6); CREATINE KINASE 73 UL (21-215)
[2020-10-08 16:29] LABS: TROPONIN-I < 0.017 ng/mL (0.000-0.060)
--- NOTE | 2020-10-08 17:33 | NUR ---
NURSE COMPLETES [facility]STAR AND FAXED TO [facility] ON PT'S FALL
--- NOTE | 2020-10-08 18:08 | NUR ---
NURSE TALKS WITH ADRIEL ABOUT PATIENT STATING THAT HER LEFT SHOULDER HURTING AND HER NOT BEING ABLE TO LIFT IT. NURSE TO CONSULT ORTHO
--- NOTE | 2020-10-08 18:51 | NUR ---
DISCHARGE CANCELLED DUE TO PATIENT HAVING HEART CATH IN AM
[2020-10-08 20:00] VITALS: BP 141/72
--- NOTE | 2020-10-08 20:07 | NUR ---
REFUSES TO CALL FOR ASSIT TO TRANSFER OR AMBULATE. UP AT [facility] AND JUST TOOK A SHOWER. ROOM SMELLS OF MARIJUANNA. EDUCATED HER ON RISK OF SMOKING WITH O2 IN ROOM. ASKED HER TO PLEASE DO NOT SMOKE IN THE ROOM. GAVE VERBAL OK. DENIES SMOKING POT. STATES " I HAD A BAG IN MY PURSE AND I PUT IT IN A BAGGIE AND PUT IT UNDER THE SINK". AGAIN REINERATED TO NOT SMOKE POT IN THIS ROOM OR IN THIS HOSPITAL.
--- NOTE | 2020-10-08 21:38 | NUR ---
HAD ORDER WORKER CARDIOLOGY PAGED THRU ANSWERING SERVICE EARLIER THIS SHIFT. NO CALL BACK. WILL CALL ANSWERING SERVICE AGAIN D/T ALLERGY TO IODINE AND HAS CATH IN AM.
[2020-10-09] VITALS (10 sets, daily range): BP systolic 98–162; BP diastolic 54–96
--- NOTE | 2020-10-09 04:47 | MORECARE ---
CASE MANAGEMENT DISCHARGE SUMMARY PATIENT: CANDI WILSON UNIT: [id number] ADM DATE: 10/07/20 AGE: 40 : 78 SEX: F ROOM/BED: D.2106 AUTHOR: DALLIN,DOC PHYSICIAN: REFERRING PHYSICIAN: YIMI BREWER MD DATE OF SERVICE: 10/09/20 Case Management Discharge Planning Summary CT Patient Name: CANDI WILSON Attending MD : YIMI RIVERA Medical Record: [id number] Encounter : [id number] Facility : [address] [place] [address] Medical Admission Date : 115:52 Center Discharge Date : [address] [place] [address] Date of : DC Plan ID : [id number] Age/Sex/Martia : 40/ F/M Printed on : 10/09/20 4:45 CT DCP Review Details Anticipated D/C: Expected LOS : Case Status : INITIATED - Initial Reviewe: [id number] - Ysabel Britt Initial Review: 10/05/2020 Planned Disposi: 01 - Home or Self Care (Routine Discharge) Final Discharge: - Final Reviewer : : Final Review : Comments CT Entered Date Type Reviewer 10/09/20 4:43 CT Discharge Planning Ysabel Britt Comment CM spoke with patient to complete initial dc planning assessment. CM educated patient on the CM role and verbal consent given by patient to complete assessment. Patient lives at home with family. Patient is independent. At discharge patient plans to return home and feels this is a safe discharge. CM discussed availability of home health, rehab services, and medical equipment. Patient will have family to transport home. Patient denied known discharge needs at this time. CM will continue to follow and will assist as needed with dc plans/needs. DCP Focus Questions & Answers DCP Screen High Risk Factors: None Walking limitation: Patient stated self rated No walking limitation present? Age: 18 - 44 Prior living environment: Lives with others Disability ranking: Grade 1: No significant disability DCP Evaluation Patient's ability to cope with chronic illness d. No chronic illness Family / Caregiver's ability to cope with chronic a. Adequate (ability to meet patient's illness: medical needs, ensures patient attends medical appts.) Physical Status: Independent with ADL's Living Arrangements: Home Alone with Support Baseline cognitive status: *Oriented to person, place, situation, time and present Does Patient have transportation to get home and Yes to follow-up medical appointments when discharged from the hospital? Would patient like to participate in any Care Not applicable Coordination programs (if applicable): Does the patient have electricity at home? Yes Does the patient have running water in their Yes house? Mental health screen: No mental health history DCP Re-evaluation Would patient like to participate in any Care Not applicable Coordination programs (if applicable): [facility] CANDI WILSON MR#: [id number] /Age/Sex/Peqrxy56-Ert-82 /40/F /M Attending Physician Name: YIMI BREWER [id number] Patient Account:[id number] [facility] Page -1 of 1 All edits/amendments must be made on the electronic document DICTATION DATE: 10/09/20444 TUMBLER MACHINE OPERATOR: ANUJ 10/09/20444 RPT#: [id number] DC DATE: STATUS: ADM IN [facility] [address] [place] [address] END OF REPORT
[2020-10-09 06:00] LABS: BASOPHILS 0.2 % (0-2); EOSINOPHILS 0.1 % (0-7); HEMATOCRIT 44.6 % (36.0-48.0); HEMOGLOBIN 15.4 g/dL (12-16); IMMATURE GRANULOCYTES 0.3 % (0-5); LYMPHOCYTE ABS# 1.03 10x3/uL (1.18-3.74); LYMPHOCYTES 8.5 % (15-50); MCH 32.3 pg (26.0-34.0); MCHC 34.5 g/dL (31.0-37.0); MCV 93.5 fL (80.0-100.0); MEAN PLATELET VOLUME 9.3 fL (7.4-10.4); MONOCYTES 0.8 % (2-11); NEUTROPHIL ABS# 10.92 10x3/uL (1.56-6.13); NEUTROPHILS 90.1 % (40-80); PLATELET COUNT 400 10x3/uL (130-400); RBC 4.77 10x6/uL (4.00-5.40); RDW 11.8 % (11.5-14.5)
[2020-10-09 06:10] LABS: WBC 12.1 10x3/uL (4.8-10.8)
[2020-10-09 06:16] LABS: ANION GAP 14.1 mmol/L (8-16); CALCIUM 8.7 mg/dL (8.5-10.1); CARBON DIOXIDE 23.5 mmol/L (21.0-32.0); CREATININE - SERUM 0.9 mg/dL (0.6-1.3); POTASSIUM - SERUM 4.6 mmol/L (3.5-5.1)
[2020-10-09 06:18] LABS: PHOSPHOROUS 2.7 mg/dL (2.5-4.9)
--- NOTE | 2020-10-09 09:10 | NUR ---
PT LEFT UNIT WITH MEMORIAL ADVISER TEAM AT THIS TIME.
--- NOTE | 2020-10-09 10:05 | NUR ---
PT ARRIVED VIA HOSPITAL BED AND AWAKE AND ALERT. SISTER AT BEDSIDE. VS OBTAINED AND STABLE. IV INFUSING POST HEART CATH. TR BAND IN PLACE, NO HEMATOMA NOTED. INSTRUCTED PT TO KEEP RIGHT WRIST STILL AND NOT TO USE IT. PT STATES UNDERSTANDING. JUICE AND WATER BROUGHT TO PT PER REQUEST. NO FURTHER NEEDS VOICED. CLWR.
--- NOTE | 2020-10-09 11:05 | NUR ---
2 CC OF AIR REMOVED FROM TR BAND AT THIS TIME. NO BLEEDING OR HEMATOMA NOTED. PT HAS DISCOMFORT TO SITE, REASSURANCE AND EDUCATION GIVEN.
--- NOTE | 2020-10-09 11:40 | NUR ---
2 CC AIR REMOVED FROM TR BAND AT THIS TIME. NO BLEEDING OR HEMATOMA PRESENT. PT STILL HAS DISCOMFORT TO ARM. NO FURTHER NEEDS VOICED. CLWR.
--- NOTE | 2020-10-09 12:05 | NUR ---
2 ML OF AIR REMOVED FROM TRBAND AT THIS TIME. PULSE PALPABLE. NO NEEDS VOICED. CLWR.
--- NOTE | 2020-10-09 12:41 | NUR ---
2 ML AIR REMOVED FROM TRBAND AT THIS TIME. PT SITTING ON SIDE OF BED, AMBULATED TO RESTROOM WITHOUT ASSISTANCE. VS STABLE. NO NEEDS VOICED. CLWR.
--- NOTE | 2020-10-09 13:00 | MORECARE ---
CASE MANAGEMENT DISCHARGE SUMMARY PATIENT: CANDI WILSON UNIT: [id number] ADM DATE: 10/07/20 AGE: 40 : 78 SEX: F ROOM/BED: D.2100 AUTHOR: DALLIN,DOC PHYSICIAN: REFERRING PHYSICIAN: YIMI BREWER MD DATE OF SERVICE: 10/09/20 Case Management Discharge Planning Summary CT Patient Name: CANDI WILSON Attending MD : YIMI RIVERA Medical Record: [id number] Encounter : [id number] Facility : [address] [place] [address] Medical Admission Date : 115:52 Center Discharge Date : [address] [place] [address] Date of : DC Plan ID : [id number] Age/Sex/Martia : 40/ F/M Printed on : 10/09/20 12:59 CT DCP Review Details Anticipated D/C: Expected LOS : Case Status : INITIATED - Initial Reviewe: [id number] - Ysabel Britt Initial Review: 10/05/2020 Planned Disposi: 01 - Home or Self Care (Routine Discharge) Final Discharge: - Final Reviewer : : Final Review : Comments CT Entered Date Type Reviewer 10/09/20 4:43 CT Discharge Planning Ysabel Britt Comment CM spoke with patient to complete initial dc planning assessment. CM educated patient on the CM role and verbal consent given by patient to complete assessment. Patient lives at home with family. Patient is independent. At discharge patient plans to return home and feels this is a safe discharge. CM discussed availability of home health, rehab services, and medical equipment. Patient will have family to transport home. Patient denied known discharge needs at this time. CM will continue to follow and will assist as needed with dc plans/needs. DCP Focus Questions & Answers DCP Screen High Risk Factors: None Walking limitation: Patient stated self rated No walking limitation present? Age: 18 - 43 Prior living environment: Lives with others Disability ranking: Grade 1: No significant disability DCP Evaluation Patient's ability to cope with chronic illness d. No chronic illness Family / Caregiver's ability to cope with chronic a. Adequate (ability to meet patient's illness: medical needs, ensures patient attends medical appts.) Physical Status: Independent with ADL's Living Arrangements: Home Alone with Support Baseline cognitive status: *Oriented to person, place, situation, time and present Does Patient have transportation to get home and Yes to follow-up medical appointments when discharged from the hospital? Would patient like to participate in any Care Not applicable Coordination programs (if applicable): Does the patient have electricity at home? Yes Does the patient have running water in their Yes house? Mental health screen: No mental health history DCP Re-evaluation Would patient like to participate in any Care Not applicable Coordination programs (if applicable): [facility] CANDI WILSON MR#: [id number] /Age/Sex/Cdoegl76-Jnj-23 /40/F /M Attending Physician Name: YIMI BREWER [id number] Patient Account:[id number] [facility] Page -1 of 1 All edits/amendments must be made on the electronic document DICTATION DATE: 10/09/201258 CLINICAL TRAINING COORDINATOR: ANUJ 10/09/201258 RPT#: [id number] DC DATE: STATUS: ADM IN [facility] [address] [place] [address] END OF REPORT
--- NOTE | 2020-10-09 13:42 | NUR ---
TRBAND REMOVED AND OCCLUSIVE DRESSING APPLIED. INSTRUCTIONS GIVEN TO PT REGARDING BLEEDING AND BRUISING AT SITE, INCLUDING THE IMMOBLIZER TO RIGHT LOWER ARM FOR 24 HRS. PT STATES UNDERSTANDING. PT DRESSING AND HAS BELONGINGS GATHERED.
--- NOTE | 2020-10-09 13:50 | MORECARE ---
CASE MANAGEMENT DISCHARGE SUMMARY PATIENT: CANDI WILSON UNIT: [id number] ADM DATE: 10/07/20 AGE: 40 : 78 SEX: F ROOM/BED: D.4693 AUTHOR: DALLIN,DOC PHYSICIAN: REFERRING PHYSICIAN: YIMI BREWER MD DATE OF SERVICE: 10/09/20 Case Management Discharge Planning Summary COMMENTS ENTERED DATE: 10/09/20 13:46 CT COMMENT TYPE: Discharge Planning REVIEWER: Venkateshree Nix No needs. Patient stated that she has no needs and is discharging to a safe environment. CM will continue to follow and will assist as needed with dc plans/needs. ENTERED DATE: 10/09/20 4:43 CT COMMENT TYPE: Discharge Planning REVIEWER: Ysabel Britt CM spoke with patient to complete initial dc planning assessment. CM educated patient on the CM role and verbal consent given by patient to complete assessment. Patient lives at home with family. Patient is independent. At discharge patient plans to return home and feels this is a safe discharge. CM discussed availability of home health, rehab services, and medical equipment. Patient will have family to transport home. Patient denied known discharge needs at this time. CM will continue to follow and will assist as needed with dc plans/needs. DCP REVIEW SUMMARY ANTICIPATED D/C DATE: EXPECTED LOS : CASE STATUS: DCP Initiated INITIAL REVIEW: 10/05/2020 INITIAL REVIEWER: Ysabel Britt FINAL DISCHARGE DISPOSITION: : FINAL REVIEWER: FINAL REVIEW DATE: DCP Focus Questions & Answers DCP Screen QUESTION: ANSWER High Risk Factors: : None Walking limitation: Patient stated self rated walking limitation present? : No Age: : 18 - 43 Prior living environment: : Lives with others Disability ranking: : Grade 1: No significant disability DCP Evaluation QUESTION: ANSWER Patient's ability to cope with chronic illness : d. No chronic illness Family / Caregiver's ability to cope with chronic illness: : a. Adequate (ability to meet patient's medical needs, ensures patient attends medical appts.) Physical Status: : Independent with ADL's Living Arrangements: : Home Alone with Support Baseline cognitive status: : *Oriented to person, place, situation, time and present Does Patient have transportation to get home and to follow-up medical appointments when discharged from the hospital? : Yes Would patient like to participate in any Care Coordination programs (if applicable): : Not applicable Does the patient have electricity at home? : Yes Does the patient have running water in their house? : Yes Mental health screen: : No mental health history DCP Re-evaluation QUESTION: ANSWER Would patient like to participate in any Care Coordination programs (if applicable): : Not applicable PATIENT: CANDI WILSON ENCOUNTER: [id number] MEDICAL RECORD#: [id number] ADMISSION DATE: 10/07/2020 DISCHARGE DATE: ATTENDING MD: YIMI BEAR : AGE: 40 MARITAL STATUS: M DC PLAN ID: [id number] FACILITY: [facility] PRINTED ON: 10/09/20 13:50 CT All edits/amendments must be made on the electronic document DICTATION DATE: 10/09/20 135 HOME COMFORT ADVISOR: ANUJ 10/09/20 1350 RPT#: [id number] DC DATE: STATUS: ADM IN [facility] [address] [place] [address] END OF REPORT
--- NOTE | 2020-10-09 14:00 | NUR ---
D/C INSTRUCTIONS GIVEN TO PT AT THIS TIME. PT STATES UNDERSTANDING. PT DENIES ANY QUESTIONS AT THIS TIME. DRESSING TO RIGHT WRIST INTACT AND DRY. IMMOBILZER ON WRIST. PT STATES HER SISTER IS ON THE WAY TO PICK HER UP. ALL BELONGINGS GATHERED. IV D/C TO LEFT WRIST. CATHETER INTACT, DRESSING APPLIED.
--- NOTE | 2020-10-09 14:20 | NUR ---
PT WHEELED TO PRIVATE VEHICLE BY TRANSPORT AT THIS TIME. ALL BELONGINGS WITH PT TIME OF D/C. PT D/C WITH FAMILY. NO DISTRESS NOTED ON DEPARTURE.
--- NOTE | 2020-10-11 23:22 | MORECARE ---
CASE MANAGEMENT DISCHARGE SUMMARY PATIENT: CANDI WILSON UNIT: [id number] ADM DATE: 10/07/20 AGE: 40 : 78 SEX: F ROOM/BED: D.3498 AUTHOR: DALLIN,DOC PHYSICIAN: REFERRING PHYSICIAN: YIMI BREWER MD DATE OF SERVICE: 10/11/20 Case Management Discharge Planning Summary COMMENTS ENTERED DATE: 10/09/20 13:46 CT COMMENT TYPE: Discharge Planning REVIEWER: Venkateshree Nix No needs. Patient stated that she has no needs and is discharging to a safe environment. CM will continue to follow and will assist as needed with dc plans/needs. ENTERED DATE: 10/09/20 4:43 CT COMMENT TYPE: Discharge Planning REVIEWER: Ysabel Britt CM spoke with patient to complete initial dc planning assessment. CM educated patient on the CM role and verbal consent given by patient to complete assessment. Patient lives at home with family. Patient is independent. At discharge patient plans to return home and feels this is a safe discharge. CM discussed availability of home health, rehab services, and medical equipment. Patient will have family to transport home. Patient denied known discharge needs at this time. CM will continue to follow and will assist as needed with dc plans/needs. DCP REVIEW SUMMARY ANTICIPATED D/C DATE: EXPECTED LOS : CASE STATUS: DCP Initiated INITIAL REVIEW: 10/05/2020 INITIAL REVIEWER: Ysabel Britt FINAL DISCHARGE DISPOSITION: : FINAL REVIEWER: FINAL REVIEW DATE: DCP Focus Questions & Answers DCP Screen QUESTION: ANSWER High Risk Factors: : None Walking limitation: Patient stated self rated walking limitation present? : No Age: : 18 - 44 Prior living environment: : Lives with others Disability ranking: : Grade 1: No significant disability DCP Evaluation QUESTION: ANSWER Patient's ability to cope with chronic illness : d. No chronic illness Family / Caregiver's ability to cope with chronic illness: : a. Adequate (ability to meet patient's medical needs, ensures patient attends medical appts.) Physical Status: : Independent with ADL's Living Arrangements: : Home Alone with Support Baseline cognitive status: : *Oriented to person, place, situation, time and present Does Patient have transportation to get home and to follow-up medical appointments when discharged from the hospital? : Yes Would patient like to participate in any Care Coordination programs (if applicable): : Not applicable Does the patient have electricity at home? : Yes Does the patient have running water in their house? : Yes Mental health screen: : No mental health history DCP Re-evaluation QUESTION: ANSWER Would patient like to participate in any Care Coordination programs (if applicable): : Not applicable PATIENT: CANDI WILSON ENCOUNTER: [id number] MEDICAL RECORD#: [id number] ADMISSION DATE: 10/07/2020 DISCHARGE DATE: 10/09/2020 ATTENDING MD: YIMI BEAR : AGE: 40 MARITAL STATUS: M DC PLAN ID: [id number] FACILITY: [facility] PRINTED ON: 10/11/20 23:22 CT All edits/amendments must be made on the electronic document DICTATION DATE: 10/11/202321 CAREER TECHNICAL SUPERVISOR: ANUJ 10/11/202321 RPT#: [id number] DC DATE:10/09/20 STATUS: DIS IN [facility] [address] [place] [address] END OF REPORT
== END 2020-10-09 14:20 | disposition home or self-care (01) | DRG 287 ==
LOC: D.ER 16:59 → D.M2 22:12 → OBSVTIME 22:12 → D.M2 23:23
PROVIDERS: Emergency Medicine; Family Medicine; Internal Medicine Cardiovascular Disease; ADMIT Emergency Medicine; ATTEND Emergency Medicine
PROC: B2151ZZ Fluoroscopy of Left Heart using Low Osmolar Contrast (ICD-10-PCS; 2020-10-09)
PROC: 4A023N7 Measurement of Cardiac Sampling and Pressure, Left Heart, Percutaneous Approach (ICD-10-PCS; 2020-10-09)
PROC: B2111ZZ Fluoroscopy of Multiple Coronary Arteries using Low Osmolar Contrast (ICD-10-PCS; principal; 2020-10-09 09:30)
DX: R07.89 Other chest pain (principal); K20.90 Esophagitis, unspecified without bleeding; I95.9 Hypotension, unspecified; E11.65 Type 2 diabetes mellitus with hyperglycemia; E78.5 Hyperlipidemia, unspecified; G89.29 Other chronic pain; M54.9 Dorsalgia, unspecified; F41.9 Anxiety disorder, unspecified; I10 Essential (primary) hypertension; E66.9 Obesity, unspecified; Z68.39 Body mass index [BMI] 39.0-39.9, adult; M25.512 Pain in left shoulder; R07.81 Pleurodynia; W18.30XA Fall on same level, unspecified, initial encounter; Y93.9 Activity, unspecified; Y92.230 Patient room in hospital as the place of occurrence of the external cause; Z72.0 Tobacco use

== ENCOUNTER 2020-12-15 14:46 | Emergency (ER) | payer OTHER ==
[~2020-12-15] VITALS: Ht 154.9 cm; Wt 93.2 kg
[~2020-12-15 14:46] MED LIST changes: +CARAFATE1 G PO; +LIPITOR20 MG PO; +PEPCID40 MG PO
[2020-12-15 14:51] VITALS: BP 133/81; Ht 154.9 cm; Wt 93.2 kg
[2020-12-15 15:31] LABS: HCG URINE NEGATIVE (NEGATIVE)
[2020-12-15 15:34] LABS: BACTERIA FEW HPF (<MOD); BILIRUBIN NEGATIVE (NEGATIVE); KETONE TRACE mg/dL (< 1+); NITRITE NEGATIVE (NEGATIVE); SQUAMOUS EPITHELIAL 2 HPF (0-4); UROBILINOGEN NORMAL mg/dL (< 2); WHITE CELLS - URINE 5 HPF (0-4)
[2020-12-15 15:35] LABS: BASOPHILS 0.4 % (0-2); EOSINOPHILS 0.2 % (0-7); HEMATOCRIT 46.5 % (36.0-48.0); HEMOGLOBIN 15.9 g/dL (12-16); LYMPHOCYTES 12.6 % (15-50); MCH 31.6 pg (26.0-34.0); MCHC 34.2 g/dL (31.0-37.0); MCV 92.3 fL (80.0-100.0); MEAN PLATELET VOLUME 6.6 fL (7.4-10.4); MONOCYTES 4.6 % (2-11); NEUTROPHILS 82.2 % (40-80); PLATELET COUNT 395 10x3/uL (130-400); RBC 5.04 10x6/uL (4.00-5.40); RDW 12.1 % (11.5-14.5); WBC 13.9 10x3/uL (4.8-10.8)
[2020-12-15 15:42] LABS: CALC OSMOLALITY 281 mosm/kg (275-300); CALCIUM 9.1 mg/dL (8.5-10.1); CARBON DIOXIDE 19.7 mmol/L (21.0-32.0); CHLORIDE - SERUM 100 mmol/L (98-107); CREATININE - SERUM 0.7 mg/dL (0.6-1.3); GLUCOSE 281 mg/dL (74-106); POTASSIUM - SERUM 4.2 mmol/L (3.5-5.1); SODIUM 135 mmol/L (136-145); UREA NITROGEN 17 mg/dL (7-18); eGFR NON AFRICAN AMERICAN > 90 mL/min (90-120)
[2020-12-15 15:48] LABS: ALBUMIN 4.7 g/dL (3.4-5.0); ALKALINE PHOSPHATASE 92 U/L (30-120); ALT (SGPT) 23 U/L (10-68); AMYLASE - SERUM 74 U/L (25-115); BILIRUBIN - TOTAL 0.44 mg/dL (0.2-1.3); LIPASE 68 U/L (73-393); PROTEIN - SERUM 7.1 g/dL (6.4-8.2)
[2020-12-15] MEDS ORDERED: DOXYCYCLINE HY100 M2 PO (18:11)
[2020-12-15] MEDS ORDERED: PHENERGAN50 MG RC (18:11)
[2020-12-15] MEDS ORDERED: BENTYL 20 MG TA20 MG PO (20:36)
== END 2020-12-15 21:03 | disposition home or self-care (01) ==
LOC: D.ER 14:46
PROVIDERS: Family Medicine
DX: R10.30 Lower abdominal pain, unspecified (principal); R31.9 Hematuria, unspecified; E11.65 Type 2 diabetes mellitus with hyperglycemia; N85.8 Other specified noninflammatory disorders of uterus; D72.829 Elevated white blood cell count, unspecified; D25.9 Leiomyoma of uterus, unspecified; I10 Essential (primary) hypertension; K21.9 Gastro-esophageal reflux disease without esophagitis; Z72.0 Tobacco use; Z79.4 Long term (current) use of insulin